=== PATIENT | female | born 1970 | race Caucasian/White ===

== ENCOUNTER → 2016-07-04 | Outpatient (CLI) | payer MEDICAID, BC ==
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
== END | disposition home or self-care (01) ==
LOC: RADMRIMAIN 07:43
PROVIDERS: ATTEND Family Medicine
DX: M47.816 Spondylosis without myelopathy or radiculopathy, lumbar region (principal)
CPT/HCPCS: 72148

== ENCOUNTER → 2016-12-30 | Outpatient (CLI) | payer MEDICAID, BC ==
[2016-12-30 08:26] LABS: Basophils # (A) 0.1 k/uL (0-0.2); Basophils % (A) 1 %; CH 31.3; CHCM 35.5; Eosinophils # (A) 0.4 k/uL (0-0.7); Eosinophils % (A) 5 %; HCT 43.3 % (34.0-46.0); HDW 2.77; HGB 15.6 gm/dL (11.4-16.0); Luc # (Auto) 0.22; Luc % (Auto) 3; Lymphocytes # (A) 2.3 k/uL (1.0-4.8); Lymphocytes % (A) 28 %; MCHC 36.2 g/dL (31.0-37.0); MCV 88.5 fL (80.0-100.0); Monocytes # (A) 0.5 k/uL (0-1.0); Monocytes % (A) 6 %; Neutrophils # (A) 4.7 k/uL (1.3-7.7); Neutrophils % (A) 58 %; RBC 4.89 m/uL (3.80-5.40); RDW 13.2 % (11.5-15.5); WBC 8.2 k/uL (3.8-10.6); WBC (Perox) 7.63
[2016-12-30 08:28] LABS: ALT 30 U/L (9-52); AST 22 U/L (14-36); Alkaline Phosphatase 73 U/L (38-126); Anion Gap 13 mmol/L; Blood Urea Nitrogen 11 mg/dL (7-17); Calcium 9.9 mg/dL (8.4-10.2); Carbon Dioxide 29 mmol/L (22-30); Chloride 97 mmol/L (98-107); Cholesterol 179 mg/dL (<200); Creatine Kinase 35 U/L (30-135); Glucose 101 mg/dL (74-99); HDL Cholesterol 73 mg/dL (40-60); Non-African American GFR(MDRD) >60 (>60 ml/min/1.73 sqM); Potassium 4.6 mmol/L (3.5-5.1); Sodium 139 mmol/L (137-145); Total Bilirubin 0.7 mg/dL (0.2-1.3); Total Protein 7.7 g/dL (6.3-8.2); Triglycerides 106 mg/dL (<150)
== END | disposition home or self-care (01) ==
LOC: LABWHC1 07:10
PROVIDERS: ATTEND Physician Assistant Medical
DX: E55.9 Vitamin D deficiency, unspecified (principal); E78.2 Mixed hyperlipidemia
CPT/HCPCS: 36415; 80053; 80061; 82306; 82550; 84443; 85025

== ENCOUNTER → 2017-01-15 | Outpatient (CLI) | payer MEDICAID, BC ==
--- NOTE | 2017-01-15 09:11 | USB ---
Reason for exam: clinical finding. History: Patient is postmenopausal and history of other cancer. Family history of breast cancer in maternal cousin and breast cancer in paternal grandmother at age 50. Benign US biopsy breast VAD LT of the left breast, February 09, 2016. Took hormonal contraceptives for 10 years beginning at age 16. Physical Findings: Nurse Summary: pain x 1 year with left pressure 6-9 o'clock secondary to biopsy (nurse cw). US Breast LT Left breast ultrasound includes all four quadrants, the retroareolar region and axilla. Finding demonstrates a 6 x 4 x 6mm oval, hypoechoic lesion at 9 o'clock seen with anteriorly adjacent to clip. These results were verbally communicated with the patient and result sheet given to the patient on 01/15/17. ASSESSMENT: Benign, BI-RAD 2 RECOMMENDATION: Return to routine screening mammogram schedule for both breasts. Back on schedule for January 2017.
== END | disposition home or self-care (01) ==
LOC: RADUSWWP 08:12
PROVIDERS: ATTEND Surgery
DX: R92.8 Other abnormal and inconclusive findings on diagnostic imaging of breast (principal)

== ENCOUNTER → 2017-02-12 | Outpatient (CLI) | payer MEDICAID, BC ==
--- NOTE | 2017-02-12 15:34 | XR ---
EXAMINATION TYPE: XR Hip Complete LT DATE OF EXAM: 02/12/2017 COMPARISON: NONE HISTORY: 46-year-old female with left hip pain and bursitis, limited range of motion since fall 6 mon ths ago. TECHNIQUE: AP and frog-leg lateral views. FINDINGS: Hip joint spaces relatively maintained. Some enthesopathic change noted at the gluteal insertion onto the greater trochanter. No acute fracture, subluxation, or dislocation. Osteitis pubis is noted. IMPRESSION: No acute osseous abnormality seen.
== END | disposition home or self-care (01) ==
LOC: RADXRYALE 14:42
PROVIDERS: ATTEND Physician Assistant Medical
DX: M70.62 Trochanteric bursitis, left hip (principal)
CPT/HCPCS: 73502

== ENCOUNTER → 2017-08-27 | Outpatient (CLI) | payer MEDICAID, BC ==
--- NOTE | 2017-08-27 13:33 | MR ---
PRE AND POSTCONTRAST ENHANCED MRI OF THE BRAIN: CLINICAL HISTORY: ataxia, vertigo CONTRAST: 6ml gadavist COMPARISON: 04/26/2015 Multiplanar and multispin-echo imaging of the brain was performed both before and after the administr ation of contrast. The ventricles, basal cisterns and sulci overlying the cerebral convexities are within normal limits. There is no evidence for midline shift or mass effect. Acute intracranial hemorrhage or extra-axial collection is not evident. Stable focus of increased signal on the inversion recovery data set right parietal lobe. The findings nonspecific and can be seen in patients with chronic migraine headaches, vasculitis, sequela of Lyme 's disease and less likely demyelination and a few. Prominent perivascular space of Virchow Freddie not ed. Following contrast administration, there is no evidence for pathologic enhancement or enhancing mass. The paranasal sinuses and mastoid air cells are well-aerated. IMPRESSION: Stable focus of increased signal on the inversion recovery data set right parietal lobe. The findings nonspecific and can be seen in patients with chronic migraine headaches, vasculitis, sequela of Lyme 's disease and less likely demyelination and a few.
== END | disposition home or self-care (01) ==
LOC: RADMRIMAIN 08:30
PROVIDERS: ATTEND Otolaryngology
DX: R90.89 Other abnormal findings on diagnostic imaging of central nervous system (principal); R42 Dizziness and giddiness
CPT/HCPCS: 82565; 70553; A9581

== ENCOUNTER → 2018-05-15 | Outpatient (CLI) | payer MEDICAID, BC | LOC: LABWHC1 10:35 | PROVIDERS: ATTEND Obstetrics & Gynecology | DX: N95.1 Menopausal and female climacteric states (principal) | CPT/HCPCS: 36415; 82670 ==

== ENCOUNTER → 2018-08-05 | Outpatient (CLI) | payer MEDICAID, BC ==
--- NOTE | 2018-08-05 14:46 | XR ---
EXAMINATION TYPE: XR cervical spine comp DATE OF EXAM: 08/05/2018 CLINICAL HISTORY: pain COMPARISON: NONE TECHNIQUE: Frontal, lateral, oblique, swimmers, and open mouth view of the cervical spine are obtaine d. FINDINGS: The cervical spine is visualized in its entirety from C1 thru the top of T1 level. It is s atisfactory in alignment without evidence of acute fracture or dislocation. The pre-vertebral soft t issue appears within normal limits. Mild degenerative narrowing and spur formation at C4-5. The C1-C2 articulation is unremarkable on the open mouth view. The oblique images are within normal limits. IMPRESSION: No acute fracture or dislocation is seen in the cervical spine.ICD 10 NO FRACTURE, INITI AL EVALUATION
== END | disposition home or self-care (01) ==
LOC: RADXRYALE 13:49
PROVIDERS: ATTEND Physician Assistant Medical
DX: M54.2 Cervicalgia (principal)
CPT/HCPCS: 72050

== ENCOUNTER 2018-09-25 11:33 | Emergency (ER) | payer MEDICAID, BC ==
[2018-09-25 11:38] VITALS: TEMP 98.1
[2018-09-25] MEDS ORDERED: HYDROcodone/APAP 5-325MG 1 EACH TAB PO STA (12:25)
--- NOTE | 2018-09-25 13:11 | CT ---
EXAMINATION TYPE: CT pelvis wo con, CT sacrum wo con DATE OF EXAM: 09/25/2018 COMPARISON: None. HISTORY: Fall; Possible hip fracture (accession [id number]), Fall; possible hip fracture (accession [id number]) fall injury with pelvic and sacral pain. CT DLP: 689.5 (accession [id number]), 361.9 (accession [id number]) mGycm Automated exposure control for dose reduction was used. FINDINGS: Sacrum appears intact. Sacral alar maintained bilaterally. Sacroiliac joints are symmetric and felt w ithin normal limits. Pelvis shows sclerosis involving right pubic symphysis. Etiology uncertain. No acute fracture or disl ocation is seen. Hip joints are symmetric with perhaps mild axial joint space loss. Urinary bladder is felt within normal limits. Uterus is surgically absent or atrophic. Tiny fat-conta ining umbilical hernia is seen. No suspicious bowel dilatation is present. There is low-lying cecum i nto the pelvis noted. Right-sided pelvic phlebolith are present. Muscle bulk bilateral thighs is symmetric and felt within normal limits. No suspicious fluid collecti on or hematoma is identified. IMPRESSION: NO ACUTE FRACTURE OR DISLOCATION IN PELVIS OR SACRUM.
--- NOTE | 2018-09-25 13:13 | CT ---
EXAMINATION TYPE: CT hip RT wo con DATE OF EXAM: 09/25/2018 COMPARISON: Right hip radiographs of the same date HISTORY: Fall; Possible hip fracture. Right hip pain. CT DLP: 1024.7 mGycm Automated exposure control for dose reduction was used. FINDINGS: No acute fracture or dislocation is seen of the right hip. Very mild inferior medial joint space narr owing is seen. There is normal muscle volume of the surrounding hip girdle musculature. Slight fat st randing at the posterior aspect of the gluteal soft tissues may relate to osseous contusion. Right ov chavez approximately 2.3 cm cystic lesion is seen. Asymmetric sclerosis of the right pubic bone althou gh is nonspecific is likely degenerative. Sacroiliac joint spaces maintained and no widening is seen. IMPRESSION: 1. NO ACUTE FRACTURE OF THE RIGHT HIP. 2. ASYMMETRIC RIGHT PUBIC BONE SCLEROSIS LIKELY RELATES TO OSTEITIS PUBIS. 3. SUBTLE PROBABLE RIGHT POSTERIOR GLUTEAL TISSUE CONTUSION.
[2018-09-25 13:25] VITALS: BP 133/86; PULSE 69; RESP 16
--- NOTE | 2018-09-25 13:26 | ED ---
Lower Extremity Injury HPI - General Chief Complaint: Extremity Injury, Lower Stated Complaint: fall/poss hip fracture Time Seen by Provider: 09/25/18 11:34 Source: patient, RN notes reviewed, old records reviewed Mode of arrival: wheelchair Limitations: no limitations - History of Present Illness Initial Comments: This is a 47-year-old female the ER. Patient resents today for a fall. Patient recently had x-rays done of the fall after fall and Concern for possible hip fracture. Patient continuing to complain of hip pain. Left hip pain. No other injury or trauma noted. MD Complaint: hip injury (Left) -: days(s) Injury: Hip: Left, Pelvis: Left Type of Injury: blunt Place: home Severity: moderate Severity scale (1-10): 5 Improves With: nothing Worsens With: weight bearing Context: fall Associated Symptoms: able to partially bear weight, ambulatory Treatments Prior to Arrival: bandage - Related Data Home Medications Medication Instructions Recorded Confirmed Vitamin E (Dl,Tocopheryl Acet) 400 unit PO DAILY 11/20/13 09/25/18 [Vitamin E] Cholecalciferol [Vitamin D3] 5,000 unit PO DAILY 09/25/18 09/25/18 Diazepam [Valium] 5 mg PO BID 09/25/18 09/25/18 Gabapentin [Neurontin] 300 mg PO AC-BID 09/25/18 09/25/18 Gabapentin [Neurontin] 600 mg PO HS 09/25/18 09/25/18 Hydrocodone/Acetaminophen [[place] 1 tab PO Q4H 09/25/18 09/25/18 10-325] Meclizine [Antivert] 25 mg PO QID 09/25/18 09/25/18 Ondansetron HCl [Zofran] 8 mg PO TID PRN 09/25/18 09/25/18 Simvastatin [Zocor] 20 mg PO HS 09/25/18 09/25/18 Allergies Allergy/AdvReac Type Severity Reaction Status Date / Time Iodinated Contrast- Oral and Allergy Severe Anaphylaxis Verified 09/25/18 12:03 IV Dye [Iodinated Contrast Media - IV Dye] MRI CONTRAST Allergy Severe Anaphylaxis Uncoded 09/25/18 12:03 Review of Systems ROS Statement: Those systems with pertinent positive or pertinent negative responses have been documented in the HPI. ROS Other: All systems not noted in ROS Statement are negative. Past Medical History Past Medical History: COPD Additional Past Medical History / Comment(s): ulcerative colitis History of Any Multi-Drug Resistant Organisms: None Reported Past Surgical History: Hysterectomy, Orthopedic Surgery Additional Past Surgical History / Comment(s): RT KNEE ACL. KIDNEY SURGERY CHILD. MULTIPLE D&C Past Psychological History: No Psychological Hx Reported Smoking Status: Former smoker Past Alcohol Use History: Rare Past Drug Use History: None Reported General Exam Limitations: no limitations General appearance: alert, in no apparent distress Head exam: Present: atraumatic, normocephalic, normal inspection Eye exam: Present: normal appearance, PERRL, EOMI. Absent: scleral icterus, conjunctival injection, periorbital swelling ENT exam: Present: normal exam, mucous membranes moist Neck exam: Present: normal inspection. Absent: tenderness, meningismus, lymphad enopathy Respiratory exam: Present: normal lung sounds bilaterally. Absent: respiratory distress, wheezes, rales, rhonchi, stridor Cardiovascular Exam: Present: regular rate, normal rhythm, normal heart sounds. Absent: systolic murmur, diastolic murmur, rubs, gallop, clicks GI/Abdominal exam: Present: soft, normal bowel sounds. Absent: distended, tenderness, guarding, rebound, rigid Extremities exam: Present: normal inspection, full ROM, normal capillary refill. Absent: tenderness, pedal edema, joint swelling, calf tenderness Back exam: Present: normal inspection Neurological exam: Present: alert, oriented X3, CN II-XII intact Psychiatric exam: Present: normal affect, normal mood Skin exam: Present: warm, dry, intact, normal color. Absent: rash Course Vital Signs 09/25/18 09/25/18 11:35 13:23 Temperature 98.1 F Pulse Rate 85 69 Respiratory 18 16 Rate Blood Pressure 136/91 133/86 O2 Sat by Pulse 99 97 Oximetry - Reevaluation(s) Reevaluation #1: Neck record and prior x-rays are reviewed Patient informed of negative CT scans Medical Decision Making - Medical Decision Making Plan I female the ER for evaluation, patient does have fall, contusion is did do computed tomography scan of her pelvis which is negative for traumatic injury Disposition Clinical Impression: Fall, Contusion, hip Disposition: HOME SELF-CARE Condition: Good Instructions (If sedation given, give patient instructions): Fall Prevention for Older Adults (ED), Hip Pain (ED) Is patient prescribed a controlled substance at d/c from ED?: No Referrals: Josafat Mendoza DO [Primary Care Provider] - 1-2 days
[2018-09-25] MEDS ORDERED: ACET/COD 300 MG/30 MG STARTER PACK 6 TAB BTL PO STA (14:02)
== END 2018-09-25 14:17 | disposition home or self-care (01) ==
LOC: EC 11:33
DX: S70.02XA Contusion of left hip, initial encounter (principal); Z87.891 Personal history of nicotine dependence; Z79.891 Long term (current) use of opiate analgesic; Z79.899 Other long term (current) drug therapy; Z91.041 Radiographic dye allergy status; W10.9XXA Fall (on) (from) unspecified stairs and steps, initial encounter; Y92.009 Unspecified place in unspecified non-institutional (private) residence as the place of occurrence of the external cause
CPT/HCPCS: 72192; 99284

== ENCOUNTER → 2018-09-25 | Outpatient (CLI) | payer MEDICAID, BC ==
--- NOTE | 2018-09-25 10:33 | XR ---
EXAMINATION TYPE: XR Hip Complete RT DATE OF EXAM: 09/25/2018 CLINICAL HISTORY: Right hip pain after fall one day ago TECHNIQUE: AP and frogleg views of the right hip are obtained. COMPARISON: None. FINDINGS: There is a very subtle questionable lucency of the right lateral femoral head neck junction on the frog leg view and cortical discontinuity on the AP view. Subtle subcapital right hip fracture is possible and could be further evaluated with CT. No additional acute fracture is identified of th e right hip. Few phleboliths are seen within the pelvis. No suspicious osseous lesion. IMPRESSION: Questionable subtle nondisplaced subcapital right hip fracture for which CT is recommend ed for further evaluation. Findings and recommendations were communicated to Sherrie at the [facility] [place] office by Dr. Danielson at 10:30am.
--- NOTE | 2018-09-25 10:34 | XR ---
EXAMINATION TYPE: XR lumbar spine 2 or 3V DATE OF EXAM: 09/25/2018 CLINICAL HISTORY: Fall and back pain TECHNIQUE: Frontal and lateral images of the lumbar spine are obtained. COMPARISON: 08/30/2011 FINDINGS: There are 5 lumbar type vertebral bodies identified. There are hypoplastic 12th ribs. The lumbar spine shows satisfactory alignment without evidence of acute fracture or dislocation. Vertebra l body heights and disk space heights are within normal limits. Facet arthropathy is seen from L3 thr ough S1 with small anterior osteophytes throughout the lower lumbar spine. Very mild levoscoliosis m ay be positional in nature. The overlying soft tissue appears unremarkable. IMPRESSION: No acute fracture or malalignment is seen in the lumbar spine.
== END | disposition home or self-care (01) ==
LOC: RADXRMAIN 09:28
PROVIDERS: ATTEND Physician Assistant Medical
DX: M25.551 Pain in right hip (principal); M51.16 Intervertebral disc disorders with radiculopathy, lumbar region; R29.6 Repeated falls
CPT/HCPCS: 72100; 73502

== ENCOUNTER → 2018-11-25 | Outpatient (CLI) | payer MEDICAID, BC ==
[2018-11-25 12:52] LABS: Anion Gap 8 mmol/L; Blood Urea Nitrogen 10 mg/dL (7-17); Carbon Dioxide 33 mmol/L (22-30); Chloride 98 mmol/L (98-107); Glucose 103 mg/dL (74-99); Potassium 3.3 mmol/L (3.5-5.1); Sodium 139 mmol/L (137-145)
[2018-11-25 13:04] LABS: Basophils # (A) 0.1 k/uL (0-0.2); Basophils % (A) 1 %; Eosinophils # (A) 0.3 k/uL (0-0.7); Eosinophils % (A) 5 %; HCT 42.3 % (34.0-46.0); HGB 14.3 gm/dL (11.4-16.0); Lymphocytes # (A) 1.9 k/uL (1.0-4.8); Lymphocytes % (A) 27 %; MCH 29.9 pg (25.0-35.0); MCHC 33.9 g/dL (31.0-37.0); MCV 88.3 fL (80.0-100.0); Mean Platelet Volume 7.2; Monocytes # (A) 0.4 k/uL (0-1.0); Monocytes % (A) 5 %; Neutrophils # (A) 4.4 k/uL (1.3-7.7); Neutrophils % (A) 61 %; Platelet Count 372 k/uL (150-450); RBC 4.79 m/uL (3.80-5.40); RDW 13.3 % (11.5-15.5); WBC 7.2 k/uL (3.8-10.6)
== END | disposition home or self-care (01) ==
LOC: LABPAT 12:16
PROVIDERS: ATTEND Obstetrics & Gynecology
DX: Z01.812 Encounter for preprocedural laboratory examination (principal); N81.6 Rectocele
CPT/HCPCS: 80051; 82565; 82947; 84520; 85025; 87086

== ENCOUNTER 2018-11-26 05:34 | Observation (INO) | payer MEDICAID, BC ==
[~2018-11-26 05:34] MED LIST: ceFAZolin IN SWFI 2 GM/20 ML SYRINGE IVP ONE
[2018-11-26] MEDS ORDERED: ONDANSETRON 4 MG/2 ML VIAL IVP ONE (05:45)
[2018-11-26] MEDS ORDERED: DEXAMETHASONE SOD PHOSPHATE 10 MG/ML 1 ML VIAL IV ONE (05:45)
[2018-11-26] MEDS ORDERED: MIDAZOLAM 2 MG/2 ML VIAL IV PRN (05:45)
[2018-11-26] MEDS ORDERED: HYDROmorphone 0.5 MG/0.5 ML SYRINGE IVP PRN (05:45)
[2018-11-26] MEDS ORDERED: SCOPOLAMINE 1.5MG/72HR PATCH TRANSDERM ONE (05:45)
[2018-11-26] MEDS ORDERED: LIDOCAINE 1% 20 ML VIAL (10MG/ML) FOR IV START INTRADERMA PRN (05:45)
[2018-11-26] MEDS ORDERED: LACTATED RINGERS 1,000 ML IV ONE ×2 (06:12→08:08)
[2018-11-26] MEDS ORDERED: MORPHINE SULFATE (PF) 0.3 MG/0.3 ML SYR ONE (07:20)
[2018-11-26] MEDS ORDERED: PROPOFOL 10 MG/ML 20 ML VIAL IV ONE (07:20)
[2018-11-26] MEDS ORDERED: fentaNYL (PF) 50 MCG/ML 2 ML AMP ONE (07:20)
[2018-11-26] MEDS ORDERED: diphenhydrAMINE 50 MG/ML 1 ML VIAL ONE (07:20)
[2018-11-26] MEDS ORDERED: MIDAZOLAM 2 MG/2 ML VIAL ONE (07:20)
[2018-11-26] MEDS ORDERED: VASOPRESSIN 20 UNIT/ML 1 ML VIAL IM ONE (07:52)
[2018-11-26] MEDS ORDERED: BACITRACIN 500 UNIT/GM OINT 28.4 GM TUBE TOPICAL ONE ×2 (07:58→08:04)
--- NOTE | 2018-11-26 09:18 | P.OP ---
Date of Procedure: 11/26/18 Preoperative Diagnosis: Third-degree rectocele Postoperative Diagnosis: Same Procedure(s) Performed: Posterior colporrhaphy Anesthesia: spinal Surgeon: Rose Morel Packing And Wrapping Supervisor #1: Maddie Gonzalez Estimated Blood Loss (ml): 25 IV fluids (ml): 1,000 Urine output (ml): 200 Pathology: none sent Condition: stable Disposition: PACU Indications for Procedure: Symptomatic third-degree rectocele Operative Findings: Large third-degree rectocele, first-degree cystocele, second-degree vaginal cuff prolapse Description of Procedure: After the patient and her were met in the preoperative holding area and all questions were answered, she was taken to the operating room where spinal anesthetic was administered without incident. She was in positioned, prepped and draped in the dorsal high lithotomy position. The bladder was drained for approximately 200 mL of clear urine. Exam under anesthetic was undertaken. A large third-degree rectocele was noted with gaping introitus. The remnants of the hymeneal ring were delineated with Allis clamps. The perineum and posterior vaginal mucosa were infused with dilute vasopressin solution to the apex of the defect. A triangular incision was made at the perineum. Metzenbaum scissors were utilized to undermine the posterior vaginal mucosa in the midline. This was incised on to the apex of the defect. Edges of the vaginal mucosa were delineated with Allis clamps. The underlying rectovaginal tissue was then bluntly and sharply dissected away from the vaginal mucosa. The edges of the defect bilaterally were noted. 2-0 Vicryl suture was then utilized to reapproximate the rectovaginal fascia in the midline in an interrupted fashion. Multiple sutures were utilized to effectively reduced the defect. The excess vaginal mucosa was then trimmed. The vaginal mucosa was then closed in a running locked fashion over top of the rectocele repair. A crown stitch was placed in the perineal body to reapproximate. The skin was then closed over the perineum. The repair was inspected and noted to be hemostatic. The vagina was then packed with bacitracin-soaked 1 inch iodoform gauze. Rectal exam was performed and no encroachment of suture material was palpable. Davalos catheter remained in place. Counts reported to me as correct by the operating room staff. The patient was awoken from anesthetic and transported to recovery area in stable condition.
[2018-11-26] MEDS ORDERED: SIMETHICONE 80 MG CHEWABLE PO PRN (10:21)
[2018-11-26] MEDS ORDERED: ONDANSETRON 4 MG/2 ML VIAL IVP PRN (10:21)
[2018-11-26] MEDS ORDERED: IBUPROFEN 600 MG TAB PO PRN (10:21)
[2018-11-26] MEDS ORDERED: ZOLPIDEM 5 MG TAB PO PRN (10:21)
[2018-11-26] MEDS ORDERED: Acetaminophen-Codeine 300-30mg TAB PO PRN (10:21)
[2018-11-26] MEDS ORDERED: METOCLOPRAMIDE 5 MG/ML 2 ML VIAL IVP PRN (10:21)
[2018-11-26 11:29] VITALS: BMI 35.8
[2018-11-26] MEDS: LACTATED RINGERS 1,000 ML IV SCH (11:36)
[2018-11-26] MEDS: KETOROLAC 30 MG/ML 1 ML VIAL IVP PRN ×2 (12:28→17:35)
[2018-11-26] MEDS: diphenhydrAMINE 50 MG/ML 1 ML VIAL IVP PRN ×2 (12:32→19:49)
[2018-11-26] MEDS: MECLIZINE 25 MG TAB PO SCH ×3 (14:29→21:25)
[2018-11-26] MEDS: GABAPENTIN 300 MG CAP PO SCH (17:34)
[2018-11-26] MEDS ORDERED: GABAPENTIN 300 MG CAP PO SCH (21:00)
[2018-11-26] MEDS ORDERED: PROGESTERONE PO SCH (21:00)
[2018-11-26] MEDS ORDERED: ATORVASTATIN 10 MG TAB PO SCH (21:00)
[2018-11-26] MEDS: DIAZEPAM 5 MG TAB PO SCH (21:24)
[2018-11-26] MEDS: SENNOSIDES-DOCUSATE SODIUM 1 EACH TAB PO SCH (21:25)
[2018-11-27] MEDS: KETOROLAC 30 MG/ML 1 ML VIAL IVP PRN ×2 (01:04→06:21)
[2018-11-27] MEDS: LACTATED RINGERS 1,000 ML IV SCH (06:22)
[2018-11-27] MEDS: GABAPENTIN 300 MG CAP PO SCH (07:45)
[2018-11-27] MEDS: DIAZEPAM 5 MG TAB PO SCH (07:46)
[2018-11-27] MEDS: SENNOSIDES-DOCUSATE SODIUM 1 EACH TAB PO SCH (07:46)
[2018-11-27] MEDS: MECLIZINE 25 MG TAB PO SCH (07:47)
[2018-11-27] MEDS: diphenhydrAMINE 50 MG/ML 1 ML VIAL IVP PRN (07:54)
[2018-11-27 08:19] VITALS: BP 96/60; PULSE 96; RESP 16; TEMP 98.5
--- NOTE | 2018-11-27 08:24 | P.DS ---
Providers Date of admission: 11/26/18 20:36 Expected date of discharge: 11/27/18 Attending physician: Rose Morel Primary care physician: Josafat Mendoza - Discharge Diagnosis(es) (1) Rectocele Current Visit: Yes Status: Acute Hospital Course: This is a 48-year-old woman with a large symptomatic third-degree rectocele who was admitted on 11/25/2018 for surgical repair. She went to the operating room after admission and underwent an uncomplicated posterior colporrhaphy done under spinal anesthetic. Findings at the time of surgery were significant for a large third-degree rectocele, gaping introitus, first-degree cystocele and first- degree vaginal cuff prolapse. Procedure was uncomplicated with an EBL of 25 mL's. Her postoperative course was uncomplicated. By the evening of postoperative day #0 she was tolerating a general diet and was ambulating without difficulty. By the morning of postoperative day #1 her Davalos catheter was removed and her vaginal packing was removed. There is no active vaginal bleeding noted. Her pain was tolerable on oral pain medications. Her home medications were restarted. She was discharged home in the morning of postoperative day #1 with routine instructions for care and follow-up. Procedures: Posterior colporrhaphy Patient Condition at Discharge: Good Plan - Discharge Summary Discharge Rx Participant: No New Discharge Prescriptions: No Action Vitamin E (Dl,Tocopheryl Acet) [Vitamin E] 400 unit PO DAILY Cholecalciferol [Vitamin D3] 5,000 unit PO DAILY Gabapentin [Neurontin] 600 mg PO HS Gabapentin [Neurontin] 300 mg PO AC-BID Simvastatin [Zocor] 20 mg PO HS Ondansetron HCl [Zofran] 8 mg PO TID PRN PRN Reason: Nausea Meclizine [Antivert] 25 mg PO QID Hydrocodone/Acetaminophen [Ellis 10-325] 1 tab PO Q4H Diazepam [Valium] 5 mg PO BID Loratadine-Pseudoeph 10-240 mg [Claritin-D 24 Hr] 1 tab PO DAILY Mesalamine [Canasa] 1,000 mg RECTAL HS Progesterone, Micronized [Progesterone] 400 mg PO HS Discharge Medication List Vitamin E (Dl,Tocopheryl Acet) [Vitamin E] 400 unit PO DAILY 11/20/13 [History] Cholecalciferol [Vitamin D3] 5,000 unit PO DAILY 09/25/18 [History] Diazepam [Valium] 5 mg PO BID 09/25/18 [History] Gabapentin [Neurontin] 300 mg PO AC-BID 09/25/18 [History] Gabapentin [Neurontin] 600 mg PO HS 09/25/18 [History] Hydrocodone/Acetaminophen [Ellis 10-325] 1 tab PO Q4H 09/25/18 [History] Meclizine [Antivert] 25 mg PO QID 09/25/18 [History] Ondansetron HCl [Zofran] 8 mg PO TID PRN 09/25/18 [History] Simvastatin [Zocor] 20 mg PO HS 09/25/18 [History] Loratadine-Pseudoeph 10-240 mg [Claritin-D 24 Hr] 1 tab PO DAILY 11/25/18 [History] Mesalamine [Canasa] 1,000 mg RECTAL HS 11/25/18 [History] Progesterone, Micronized [Progesterone] 400 mg PO HS 11/26/18 [History] Follow up Appointment(s)/Referral(s): Rose Morel MD [STAFF PHYSICIAN] - 2 Weeks Patient Instructions/Handouts: *Surgery [facility] - (Anesthesia) Discharge Instructions Outpatient Surgery, *Surgery [facility] - Scopalamine Patch Instructions Activity/Diet/Wound Care/Special Instructions: Follow-up in the office in 2 weeks postoperatively or sooner if any Concerning signs or symptoms which include: Heavy vaginal bleeding, foul vaginal discharge, inability to void, severe abdominal or pelvic pain, fever greater than 100.5, redness or swelling of the lower extremities. May use home nor co-as needed for pain. No heavy lifting greater than 10 pounds until seen postoperatively. Nothing in the vagina, specifically no intercourse for 6 weeks. No tub baths until seen postoperatively. Use [id number] Colace or Senokot twice daily as needed to avoid constipation. Discharge Disposition: HOME SELF-CARE
[2018-11-27 08:27] LABS: Basophils % (A) 0 %; Eosinophils # (A) 0.1 k/uL (0-0.7); Eosinophils % (A) 1 %; HCT 35.8 % (34.0-46.0); HGB 12.3 gm/dL (11.4-16.0); Lymphocytes # (A) 1.3 k/uL (1.0-4.8); Lymphocytes % (A) 10 %; MCH 30.6 pg (25.0-35.0); MCHC 34.4 g/dL (31.0-37.0); MCV 88.9 fL (80.0-100.0); Mean Platelet Volume 7.1; Monocytes # (A) 0.5 k/uL (0-1.0); Monocytes % (A) 4 %; Neutrophils # (A) 10.4 k/uL (1.3-7.7); Neutrophils % (A) 83 %; Platelet Count 321 k/uL (150-450); RBC 4.02 m/uL (3.80-5.40); RDW 13.2 % (11.5-15.5); WBC 12.5 k/uL (3.8-10.6)
[2018-11-27] MEDS ORDERED: VITAMIN E (DL,TOCOPHERYL ACET) 400 UNIT CAP PO SCH (09:00)
[2018-11-27] MEDS ORDERED: LORATADINE-PSEUDOEPH 5-120 MG 1 EACH TAB.ER.12H PO SCH (09:00)
[2018-11-27] MEDS ORDERED: CHOLECALCIFEROL 1,000 UNIT TAB PO SCH (09:00)
[2018-11-27] MEDS ORDERED: ACETAMINOPHEN TAB 325 MG TAB PO PRN (09:13)
== END 2018-11-27 11:38 | disposition home or self-care (01) ==
LOC: OR 05:34 → 6PED 09:29 → 4SSUR 09:55 → OR 20:36 → 4SSUR 21:15 → UNDOADMIN 21:15
PROVIDERS: ADMIT Obstetrics & Gynecology; ATTEND Obstetrics & Gynecology
DX: N81.6 Rectocele (principal); N81.10 Cystocele, unspecified; K51.90 Ulcerative colitis, unspecified, without complications; E78.5 Hyperlipidemia, unspecified; G62.9 Polyneuropathy, unspecified; M54.16 Radiculopathy, lumbar region; H93.3X9 Disorders of unspecified acoustic nerve; N95.1 Menopausal and female climacteric states; Z87.891 Personal history of nicotine dependence; Z87.442 Personal history of urinary calculi; Z91.040 Latex allergy status; Z88.8 Allergy status to other drugs, medicaments and biological substances; Z79.890 Hormone replacement therapy; Z79.899 Other long term (current) drug therapy; Z79.891 Long term (current) use of opiate analgesic; Z90.710 Acquired absence of both cervix and uterus; Z91.041 Radiographic dye allergy status; Z91.048 Other nonmedicinal substance allergy status; Z80.3 Family history of malignant neoplasm of breast; Z80.41 Family history of malignant neoplasm of ovary; Z82.61 Family history of arthritis; Z83.49 Family history of other endocrine, nutritional and metabolic diseases; Z82.49 Family history of ischemic heart disease and other diseases of the circulatory system; Z82.69 Family history of other diseases of the musculoskeletal system and connective tissue; Z80.0 Family history of malignant neoplasm of digestive organs
CPT/HCPCS: 86900; 86901; 84132; 85025; 86850; 57260; G0378 ×2; J2250; J1200 ×2; J1100; J2765; J2405 ×2; J2274; J3010; J1885 ×2; J2704; J0690

== ENCOUNTER → 2019-03-04 | Outpatient (CLI) | payer MEDICAID, BC ==
--- NOTE | 2019-03-04 15:54 | XR ---
EXAMINATION TYPE: XR ribs RT w pa chest xray DATE OF EXAM: 03/04/2019 CLINICAL HISTORY: Right mid and lateral rib pain after fall yesterday TECHNIQUE: Single frontal view of the chest is obtained. COMPARISON: Rib radiographs dated 04/27/2015 FINDINGS: Bibasilar strand-like opacities are seen at the lung bases with low lung volumes. Opacity l ikely represents subsegmental atelectasis. Cardiomediastinal silhouette is mildly enlarged. Nondispla jojo fractures of ribs 5 and 6 at the lateral margins are seen on the right. No apparent callus format ion is seen. Remaining ribs appear intact and unremarkable. Mild degenerative changes of the thoracic spine. IMPRESSION: Nondisplaced fractures of the lateral margins rib 5 and 6 on the right appear acute. Lina elate with point tenderness. Minimal strand-like bibasilar opacities are favored to represent atelect asis with low lung volumes.
== END | disposition home or self-care (01) ==
LOC: RADXRYALE 15:27
PROVIDERS: ATTEND Physician Assistant Medical
DX: R91.8 Other nonspecific abnormal finding of lung field (principal); R07.9 Chest pain, unspecified

== ENCOUNTER → 2019-03-12 | Outpatient (CLI) | payer MEDICAID, BC ==
--- NOTE | 2019-03-12 15:08 | XR ---
EXAMINATION TYPE: XR ribs RT w pa chest xray DATE OF EXAM: 03/12/2019 CLINICAL HISTORY: Extreme right lateral rib pain TECHNIQUE: Single frontal view of the chest is obtained. Frontal and oblique views of the right ribs were also obtained. COMPARISON: Right rib x-rays and chest x-ray dated 03/04/2019 FINDINGS: There are known nondisplaced fractures of the lateral margins of ribs 5 and 6 that were acu te on the exam of 03/04/2019 and now are subacute. Subacute healing fracture is now evident of rib 7 an d its posterior lateral margin. There is some interval callus formation. No acute displaced fracture is seen of the right ribs. Minimal patchy bibasilar subsegmental dependent atelectasis. Overall low l alix volumes. Right hemidiaphragm elevation is seen. Cardiomediastinal silhouette is stable. IMPRESSION: Some interval healing of the known nondisplaced lateral right rib 5 and 6 fractures that are subacute and visualization of a subacute lateral right rib 7 fracture.
== END | disposition home or self-care (01) ==
LOC: RADXRYALE 14:03
PROVIDERS: ATTEND Physician Assistant
DX: S22.41XA Multiple fractures of ribs, right side, initial encounter for closed fracture (principal)

== ENCOUNTER → 2019-04-06 | Outpatient (CLI) | payer MEDICAID, BC ==
--- NOTE | 2019-04-06 15:07 | XR ---
Sternum HISTORY: Sternal pain 2 views of the sternum Alignment is maintained. No depressed sternal fracture is evident. Bone mineralization thought to be normal. IMPRESSION: Bone scan may be of increased sensitivity to assess for occult injury or alternatively co nsider chest CT.
== END | disposition home or self-care (01) ==
LOC: RADXRYALE 08:47
PROVIDERS: ATTEND Family Medicine
DX: G89.4 Chronic pain syndrome (principal); S22.41XS Multiple fractures of ribs, right side, sequela; S23.421D Sprain of chondrosternal joint, subsequent encounter; Z79.891 Long term (current) use of opiate analgesic
CPT/HCPCS: 71120

== ENCOUNTER → 2019-04-27 | Outpatient (CLI) | payer MEDICAID, BC ==
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
== END | disposition home or self-care (01) ==
LOC: RADXRYALE 08:44
PROVIDERS: ATTEND Family Medicine
DX: S22.41XS Multiple fractures of ribs, right side, sequela (principal); S23.421D Sprain of chondrosternal joint, subsequent encounter; G89.4 Chronic pain syndrome; Z79.891 Long term (current) use of opiate analgesic
CPT/HCPCS: 71120

== ENCOUNTER → 2019-04-30 | Outpatient (CLI) | payer MEDICAID, BC ==
--- NOTE | 2019-04-30 14:21 | CT ---
EXAMINATION TYPE: CT chest wo con DATE OF EXAM: 04/30/2019 COMPARISON: 11/20/2013 HISTORY: Multiple rib fractures CT DLP: 410.3 mGycm, Automated exposure control for dose reduction was used. CONTRAST: Performed injected with 0 mL of Isovue 300. TECHNIQUE: Axial images were obtained at 5 mm thick sections. Reconstructed images are reviewed on [employer] computer in the coronal plane. FINDINGS: There is some minimal prominence of the right lobe thyroid. Thyroid lobe otherwise appears unremarkable. No suspicious lung nodules or focal infiltrates are present. No enlarged mediastinal or hilar adenopathy is evident. The ascending aorta diameter at the level o f the main pulmonary artery is 3.6 cm. The main pulmonary artery diameter at the bifurcation is 2.3 cm. No displaced rib fractures are evident. No pneumothorax is evident. Costochondral cartilage calcifica tion is present. Costochondral cartilage and osseous ribs appear to approximate normally. Costal ster nal junctions appear normal. Terminal appears intact. Limited CT sections are obtained through the upper abdomen. Abdomen is essentially unremarkable. IMPRESSIONS: 1. No displaced rib fractures evident. No costochondral fractures or subluxation evident.
== END | disposition home or self-care (01) ==
LOC: RADCTMAIN 07:51
PROVIDERS: ATTEND Family Medicine
DX: S23.421D Sprain of chondrosternal joint, subsequent encounter (principal); S22.41XS Multiple fractures of ribs, right side, sequela; G89.4 Chronic pain syndrome; M51.36 Other intervertebral disc degeneration, lumbar region; Z79.891 Long term (current) use of opiate analgesic
CPT/HCPCS: 71250

== ENCOUNTER → 2019-05-14 | Outpatient (CLI) | payer MEDICAID, BC ==
--- NOTE | 2019-05-14 14:51 | NM ---
EXAMINATION TYPE: NM bone scan whole body DATE OF EXAM: 05/14/2019 COMPARISON: Chest CT dated 04/30/2019 HISTORY: History of multiple rib fractures. Fall on March 04, 2019. Delayed whole-body scanning was performed following the injection of 24.7 mCi Tc 99m MDP. Images acq uired 3 hours post injection. FINDINGS: No focal radiotracer cannulation is seen within any of the ribs. Likely physiologic uptake is seen ne ar the costochondral junctions throughout both ribs. This is most focal on the left first rib. Mild s ymmetric uptake of the acromioclavicular joints, glenohumeral joints, sternoclavicular joints, sacroi liac joints, hips, knees, and ankles as well as mid feet are typically a degenerative basis. Physiolo gic uptake and excretion from the kidneys into the urinary bladder is seen. IMPRESSION: 1. Mild diffuse uptake at the costochondral junctions that can be physiologic or related to costochon dritis. This is most focal at the left first rib. No suspicious uptake to suggest acute rib fracture. 2. Degenerative changes of the axial and appendicular skeleton.
== END | disposition home or self-care (01) ==
LOC: RADNMMAIN 10:04
PROVIDERS: ATTEND Family Medicine
DX: M19.012 Primary osteoarthritis, left shoulder (principal); M19.011 Primary osteoarthritis, right shoulder; M17.0 Bilateral primary osteoarthritis of knee; M16.0 Bilateral primary osteoarthritis of hip; M19.072 Primary osteoarthritis, left ankle and foot; M19.071 Primary osteoarthritis, right ankle and foot; M53.3 Sacrococcygeal disorders, not elsewhere classified
CPT/HCPCS: 78306; A9503

== ENCOUNTER → 2019-06-03 | Outpatient (CLI) | payer MEDICAID, BC ==
--- NOTE | 2019-06-04 10:10 | P.PAINCN ---
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 Mendoza with a chief complaint of chronic pain in the right side of her sternum and right-sided ribs. Pain began in February 2019, following a fall. 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 She underwent imaging, which showed right-sided rib fractures of ribs 5, 6, 7, she did not have an epidural placed at that time for pain management. Her current medications include Harrison, Toradol, gabapentin, these are just taking the edge off the pain. She has had intramuscular steroid injections, which help with the pain for approximately one day. She denies side effects from medications. She rates her sternal pain as 7/10, described as burning, stabbing. Massage, heat, ice tend to aggravate the pain. She rates her right-sided rib pain as 5/10, described as stabbing. The rib pain has been gradually improving since the fall, however the sternal pain has remained the same. This pain will occasionally radiate to her sternum. She states that she can feel the ribs on her right side as well as her sternum "pop" when she takes a deep breath. She describes a "sticking/cracking sensation" in her ribs and sternum. She has also been using a pillow against her sternum to help reduce the pain. She states that since the fall, she has been unable to work and the pain has essentially made her an invalid. 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 She has been off work since the fall in February. She has not been evaluated by a surgeon. She follows with neurologist, Dr. Davenport, who has referred her to [facility] neurology department for her vestibular neuritis. She is yet to see them. Patient also denies new-onset weakness, bowel/bladder incontinence, or any other signs or symptoms of cauda equina syndrome. There are no signs of acute intoxication, and no indications of medication diversion or overuse. She was tearful during our interview. In addition to above, 13-point review of systems is also negative for chest pain, shortness of breath, changes in vision, changes in hearing, new onset weakness, abdominal pain, diarrhea, extreme fatigue, malaise, fever, skin changes, homicidal or suicidal ideation, or bowel or bladder incontinence. Of note, she followed with our pain clinic approximately 5 years ago and underwent lumbar radiofrequency ablation with excellent results. She also has Ulcerative colitis with years of steroid use and resulting osteoporosis Past Medical History Past Medical History: Cancer, COPD, GERD/Reflux, Osteoarthritis (OA), Vascular Disorder Additional Past Medical History / Comment(s): ulcerative colitis, migraines, ana m ycystic ovaries, gets edema in ankles, sm hiatal hernia, degenerative disk disease, 3 fx ribs-broken cartiladge from fall, hypoglycemia, hx kidney stones, hx skin cancer, vertigo History of Any Multi-Drug Resistant Organisms: None Reported Past Surgical History: Hysterectomy, Orthopedic Surgery Additional Past Surgical History / Comment(s): RT KNEE ACL, KIDNEY SURGERY CHILD, MULTIPLE D&Cs, rogelio ureter reconstruction, rt knee arthroscopy, surgery to remove staple in rt tibia, lipoma from sternal notch, colonoscopy, surgeries on left hand middle finger(glass removed and tendon repair), rectocele repair Past Anesthesia/Blood Transfusion Reactions: Motion Sickness, Postoperative Nausea & Vomiting (PONV) Additional Past Anesthesia/Blood Transfusion Reaction / Comm: vertigo Past Psychological History: No Psychological Hx Reported Smoking Status: Former smoker Past Alcohol Use History: None Reported Additional Past Alcohol Use History / Comment(s): smoked 1-2 yrs as teen Past Drug Use History: None Reported - Past Family History Father Family Medical History: Cancer, Deep Vein Thrombosis (DVT) Additional Family Medical History / Comment(s): skin Sister(s) Family Medical History: Deep Vein Thrombosis (DVT) Medications and Allergies Home Medications Medication Instructions Recorded Confirmed Type Diazepam [Valium] 5 mg PO BID 09/25/18 06/03/19 History Gabapentin [Neurontin] 300 mg PO AC-BID 09/25/18 06/03/19 History Gabapentin [Neurontin] 600 mg PO HS 09/25/18 06/03/19 History Hydrocodone/Acetaminophen [Harrison 1 tab PO Q4H 09/25/18 06/03/19 History 10-325] Meclizine [Antivert] 25 mg PO QID 09/25/18 06/03/19 History Ondansetron HCl [Zofran] 8 mg PO TID PRN 09/25/18 06/03/19 History Simvastatin [Zocor] 20 mg PO HS 09/25/18 06/03/19 History Loratadine-Pseudoeph 10-240 mg 1 tab PO DAILY 11/25/18 06/03/19 History [Claritin-D 24 Hr] Mesalamine [Canasa] 1,000 mg RECTAL HS 11/25/18 06/03/19 History Progesterone, Micronized 400 mg PO HS 11/26/18 06/03/19 History [Progesterone] Ergocalciferol [Vitamin D2] 50,000 unit PO Q15D 06/01/19 06/03/19 History Hydrochlorothiazide [Hydrodiuril] 50 mg PO BID 06/01/19 06/03/19 History Spironolactone 100 mg PO BID 06/01/19 06/03/19 History Vitamin E (Dl,Tocopheryl Acet) 400 unit PO DAILY 06/01/19 06/03/19 History [Vitamin E] Ketorolac [Toradol] 10 mg PO BID 06/03/19 06/03/19 History Allergies Allergy/AdvReac Type Severity Reaction Status Date / Time Iodinated Contrast Media Allergy Severe Anaphylaxis Verified 06/01/19 14:38 [Iodinated Contrast Media - IV Dye] latex Allergy Rash/Hives Verified 06/01/19 14:38 nickel Allergy Rash/Hives Verified 06/01/19 14:38 sumatriptan [From Imitrex] AdvReac "heart was Verified 06/01/19 14:38 pounding" MRI CONTRAST Allergy Severe Anaphylaxis Uncoded 06/01/19 14:38 Physical Exam Physical exam: Vital Signs: Reviewed in EMR GENERAL: Tearful, in mild distress PSYCH: Mood and affect is appropriate. Awake, alert, and oriented SKIN: Skin color, texture, turgor normal, no rashes or lesions HEENT: Normocephalic, atraumatic. EOM intact CV: No pedal edema RESP: Respirations are unlabored, no audible wheezing GI: Abdomen non-distended MUSCULOSKELETAL: Patient is guarding her right chest wall with right arm. She is a pillow placed against her sternum. Extreme tenderness to palpation of right costo sternal junction as well as right rib cage, likely ribs 5, 6, 7. Mild tenderness to palpation of left costo-sternal junction. No rash, no redness or deformities noted. Extremities: Peripheral joint ROM is full and pain free without obvious instability or laxity in all four extremities. No edema or skin discolorations noted. Gait: Gait is slow, guarded NEUR: Bilateral upper extremity coordination and muscle stretch reflexes are physiologic and symmetric. No loss of sensation is noted. Cranial nerves are grossly intact. Results Results: Imaging: Nuclear medicine bone scan done at [facility] on 05/14/2019 shows mild diffuse uptake at costochondral junctions it could be physiologic or related to costochondritis. Degenerative changes of axial skeleton. CT chest done at [facility] on 04/30/2019 shows no displaced rib fractur es. Costochondral cartilage calcification present. X-ray ribs done at [facility] on 03/12/2019 shows intervertebral healing of known nondisplaced lateral right rib 5 and 6 fractures that are subacute and visualization of a subacute lateral right seventh rib fracture Assessment and Plan Assessment: Assessment: 1. Costochondritis 2. Right-sided rib fractures5, 6, 7 with resulting pain 3. Obesity 4. Vestibular neuritis with vertigo and falls 5. Ulcerative colitis with years of steroid use and resulting osteoporosis Plan: Plan: 1. Explanation: We discussed that her right-sided costosternal junction pain is likely due to inflammation and costochondritis, she would likely benefit from a localized steroid injection. For her right-sided rib pain, she will likely benefit from intercostal nerve blocks at ribs 5, 6, 7 with steroid. 2. Opioid agreement: None 3. Counseling: None 4. Procedures: We'll schedule right costo sternal junction steroid injection as well as right-sided intercostal nerve blocks at ribs 5, 6, 7. 5. Consultations: None 6. Investigations: Imaging reviewed 7. Medications: No changes. Managed by primary care physician. Agree with current management. 8. Disposition: For above-mentioned procedure PQRS Measure Charge Sheet PQRS Narrative: Smoking Status Former smoker Pain Intensity [Right Flank] 5 Pain Intensity [Chest] 7 Hx Alcohol Use (MH) No Home Medications: Ambulatory Orders Diazepam [Valium] 5 mg PO BID 09/25/18 Gabapentin [Neurontin] 300 mg PO AC-BID 09/25/18 Gabapentin [Neurontin] 600 mg PO HS 09/25/18 Hydrocodone/Acetaminophen [Harrison 10-325] 1 tab PO Q4H 09/25/18 Meclizine [Antivert] 25 mg PO QID 09/25/18 Ondansetron HCl [Zofran] 8 mg PO TID PRN 09/25/18 Simvastatin [Zocor] 20 mg PO HS 09/25/18 Loratadine-Pseudoeph 10-240 mg [Claritin-D 24 Hr] 1 tab PO DAILY 11/25/18 Mesalamine [Canasa] 1,000 mg RECTAL HS 11/25/18 Progesterone, Micronized [Progesterone] 400 mg PO HS 11/26/18 Ergocalciferol [Vitamin D2] 50,000 unit PO Q15D 06/01/19 Hydrochlorothiazide [Hydrodiuril] 50 mg PO BID 06/01/19 Spironolactone 100 mg PO BID 06/01/19 Vitamin E (Dl,Tocopheryl Acet) [Vitamin E] 400 unit PO DAILY 06/01/19 Ketorolac [Toradol] 10 mg PO BID 06/03/19
== END | disposition home or self-care (01) ==
LOC: PNWHC3 10:18
PROVIDERS: ATTEND Anesthesiology
DX: G89.29 Other chronic pain (principal); M94.0 Chondrocostal junction syndrome [Tietze]; S22.41XA Multiple fractures of ribs, right side, initial encounter for closed fracture; E66.9 Obesity, unspecified; R42 Dizziness and giddiness; H93.3X9 Disorders of unspecified acoustic nerve; S23.421D Sprain of chondrosternal joint, subsequent encounter; Z91.040 Latex allergy status; Z91.048 Other nonmedicinal substance allergy status; Z88.9 Allergy status to unspecified drugs, medicaments and biological substances; Z79.891 Long term (current) use of opiate analgesic; Z79.1 Long term (current) use of non-steroidal anti-inflammatories (NSAID); Z79.899 Other long term (current) drug therapy
CPT/HCPCS: 99211

== ENCOUNTER 2019-06-14 06:06 | Day surgery (SDC) | payer MEDICAID, BC ==
[2019-06-10 15:22] VITALS: BMI 33.8
[~2019-06-14 06:06] MED LIST changes: +LACTATED RINGERS 1,000 ML IV SCH; -ceFAZolin IN SWFI 2 GM/20 ML SYRINGE IVP ONE
[2019-06-14 06:37] VITALS: TEMP 98.5
[2019-06-14] MEDS ORDERED: IV FLUID CONTINUATION 1,000 ML IV ONE (07:54)
[2019-06-14 08:00] VITALS: RESP 16
[2019-06-14 08:16] VITALS: BP 139/90; PULSE 64
--- NOTE | 2019-06-14 09:59 | FL ---
Fluoroscopy HISTORY: Pain 6 seconds fluoroscopy time supplied to the referring clinician. 1 intraoperative C-arm images docume nt the procedure. See dictated report from anesthesia.
--- NOTE | 2019-06-14 15:22 | P.PCN ---
Date of Procedure: 06/14/19 Procedure(s) Performed: Intercostal Nerve Block Attending: Franci Leon M.D. 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 Ultrasound was also used for the procedure and images saved to the patient's chart. PROCEDURE AND FINDINGS: The patient was greeted in the pre procedure holding area. The risk, benefits and alternatives to the procedure were again reviewed with the patient and written informed consent was placed in the chart. Prior to the procedure a time out was completed, verifying correct patient, procedure, site, positioning, and implants and/or special equipment. An IV line was placed. A 500 mL bag of NS was connected to the patient. The patient was taken to the procedure room. Routine monitors were applied including EKG leads, blood pressure cuff, and pulse oximetry. first, the patient was placed supine and the anterior chest was prepped and draped in the usual sterile fashion. A sterile ultrasound probe was prepped into the field. Area of maximum tenderness was localized using palpation, then a 21-gauge 2 inch Pajunk needle was advanced under continuous ultrasound guidance to the costal sternal joint. After negative aspiration, treatment solution consisting of 40 mg of Kenalog with 2 MLS of 0.5% ropivacaine was instilled. Ultrasound was utilized for needle placement and visualization of spread of medications. Then, the patient was positioned prone on the fluoroscopy table. The area of subcutaneous tissue on the right side(s) overlying the fourth, sixth, ninth, 10th levels was identified via palpation - these were the most tender ribs. The patient was prepped and draped in the usual sterile fashion. At this point, a radiopaque pointer was used to count all ribs corresponding to this level. Coming down from the 1st thoracic level the proper ribs were identified. The vertebral bodies were marked, and a point in the inferior margin of the corresponding ribs were identified and marked approximately 6 centimeters lateral to midline. At this point, the subcutaneous tissue and the skin was anesthetized using about 3 cc of 1% lidocaine at each level. This was accomplished with a 1-2 inch 25- gauge needle. Then, a 21-gauge Pajunk 100 mm needle was used and Os was contacted in each case and the tissue infiltration was done under live ultrasound guidance. The tip of the needle was walked off the inferior aspect of the rib and at that point, 2 mL's of treatment solution was injected at each level. Treatment solution consisted of 40 mg of Kenalog mixed with 7 mL's of 0.5% ropivacaine.. The needle was flushed and removed. The patient tolerated the procedure well. Patient was hemodynamically stable throughout and had no difficulty with respiration or coughing or shortness of breath. The patient was taken to the recovery room where they were monitored for a brief period of time. Patient tolerated the procedure well and were discharged home in stable condition with post procedural instructions. The patient had no questions prior to discharge. Patient was instructed to go to the emergency room should they develop sudden shortness of breath, coughing or difficulty with breathing. The patient will follow up in clinic in 4 weeks. Complications: none
== END 2019-06-14 08:35 | disposition home or self-care (01) ==
LOC: ORPAIN 06:06
PROVIDERS: ATTEND Anesthesiology
DX: G89.29 Other chronic pain (principal); M94.0 Chondrocostal junction syndrome [Tietze]; E66.9 Obesity, unspecified; H93.3X9 Disorders of unspecified acoustic nerve; R42 Dizziness and giddiness; K51.90 Ulcerative colitis, unspecified, without complications; J44.9 Chronic obstructive pulmonary disease, unspecified; K21.9 Gastro-esophageal reflux disease without esophagitis; M19.90 Unspecified osteoarthritis, unspecified site; I99.8 Other disorder of circulatory system; G43.909 Migraine, unspecified, not intractable, without status migrainosus; E28.2 Polycystic ovarian syndrome; K44.9 Diaphragmatic hernia without obstruction or gangrene; M51.9 Unspecified thoracic, thoracolumbar and lumbosacral intervertebral disc disorder; M81.8 Other osteoporosis without current pathological fracture; Z68.37 Body mass index [BMI] 37.0-37.9, adult; T38.0X5A Adverse effect of glucocorticoids and synthetic analogues, initial encounter; Z87.81 Personal history of (healed) traumatic fracture; Z79.891 Long term (current) use of opiate analgesic; Z91.81 History of falling; Z79.899 Other long term (current) drug therapy; Z79.52 Long term (current) use of systemic steroids; Z85.828 Personal history of other malignant neoplasm of skin; Z87.442 Personal history of urinary calculi; Z90.710 Acquired absence of both cervix and uterus; Z98.890 Other specified postprocedural states; Z87.898 Personal history of other specified conditions; Z91.89 Other specified personal risk factors, not elsewhere classified; Z87.891 Personal history of nicotine dependence; Z91.041 Radiographic dye allergy status; Z91.040 Latex allergy status; Z91.048 Other nonmedicinal substance allergy status; Z88.8 Allergy status to other drugs, medicaments and biological substances; Z80.8 Family history of malignant neoplasm of other organs or systems; Z82.49 Family history of ischemic heart disease and other diseases of the circulatory system
CPT/HCPCS: 64421; J2250; J3301; J3010; 20605; 64420; 99152; 99153

== ENCOUNTER 2019-07-15 06:00 | Day surgery (SDC) | payer MEDICAID, BC ==
[2019-07-12 15:19] VITALS: BMI 34.2
[~2019-07-15 06:00] MED LIST changes: +BUPIVACAINE (PF) 0.5% 30 ML VIAL ONE; -LACTATED RINGERS 1,000 ML IV SCH; +MIDAZOLAM 2 MG/2 ML VIAL ONE; +SODIUM CHLORIDE 0.9% (PF) 10 ML VIAL ONE; +TRIAMCINOLONE ACETONIDE 40 MG/ML 1 ML VIAL ONE; +fentaNYL (PF) 50 MCG/ML 2 ML AMP ONE
[2019-07-15] MEDS ORDERED: LACTATED RINGERS 1,000 ML IV SCH (06:08)
[2019-07-15 06:25] VITALS: TEMP 98.2
--- NOTE | 2019-07-15 07:55 | P.PCN ---
Date of Procedure: 07/15/19 Procedure(s) Performed: Intercostal Nerve Block costosternal joint injection Attending: Franci Leon M.D. 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 Ultrasound was also used for the procedure and images saved to the patient's chart. PROCEDURE AND FINDINGS: The patient was greeted in the pre procedure holding area. The risk, benefits and alternatives to the procedure were again reviewed with the patient and written informed consent was placed in the chart. Prior to the procedure a time out was completed, verifying correct patient, procedure, site, positioning, and implants and/or special equipment. An IV line was placed. A 500 mL bag of NS was connected to the patient. The patient was taken to the procedure room. Routine monitors were applied including EKG leads, blood pressure cuff, and pulse oximetry. first, the patient was placed supine and the anterior chest was prepped and draped in the usual sterile fashion. A sterile ultrasound probe was prepped into the field. Area of maximum tenderness was localized using palpation, then a 21-gauge 2 inch Pajunk needle was advanced under continuous ultrasound guidan ce to the costal sternal joint. After negative aspiration, 3 mL of treatment solution consisting of 40 mg of Kenalog with 3 MLS of 0.5% ropivacaine was instilled. This same procedure was repeated on the left side, 1 mL of treatment solution was instilled here. Ultrasound was utilized for needle placement and visualization of spread of medications. Then, the patient was positioned prone on the fluoroscopy table. The area of subcutaneous tissue on the right side(s) overlying the third, fourth, sixth, ninth, 10th levels was identified via palpation - these were the most tender ribs. The patient was prepped and draped in the usual sterile fashion. At this point, a radiopaque pointer was used to count all ribs corresponding to this level. Coming down from the 1st thoracic level the proper ribs were identified. The vertebral bodies were marked, and a point in the inferior margin of the corresponding ribs were identified and marked approximately 6 centimeters lateral to midline. At this point, a 21-gauge Pajunk 100 mm needle was used and Os was contacted in each case and the tissue infiltration was done under live ultrasound guidance. The tip of the needle was walked off the inferior aspect of the rib and at that point, 2 mL's of treatment solution was injected at each level. Treatment solution consisted of 40 mg of Kenalog mixed with 9 mL's of 0.5% ropivacaine. The needle was flushed and removed. The patient tolerated the procedure well. Patient was hemodynamically stable throughout and had no difficulty with respiration or coughing or shortness of breath. The patient was taken to the recovery room where they were monitored for a brief period of time. Patient tolerated the procedure well and were discharged home in stable condition with post procedural instructions. The patient had no questions prior to discharge. Patient was instructed to go to the emergency room should they develop sudden shortness of breath, coughing or difficulty with breathing. The patient will follow up for repeat procedure in 4 weeks. Complications: none
[2019-07-15] MEDS ORDERED: IV FLUID CONTINUATION 1,000 ML IV ONE (08:01)
[2019-07-15 08:04] VITALS: RESP 16
[2019-07-15 08:16] VITALS: BP 165/74; PULSE 75
--- NOTE | 2019-07-15 08:53 | FL ---
EXAMINATION TYPE: FL guided pain mgmt statistic DATE OF EXAM: 07/15/2019 CLINICAL HISTORY: Right intercostal rib pain. TECHNIQUE: Fluoroscopy. COMPARISON: None. FINDINGS: Fluoroscopic guidance was provided during pain relief procedure performed by Dr. Leon . A total of 5 seconds of fluoroscopic time was utilized during the procedure and two spot images are acq uired. Images acquired shows needle localization over right ribs. IMPRESSION: As Above.
== END 2019-07-15 08:33 | disposition home or self-care (01) ==
LOC: ORPAIN 06:00
PROVIDERS: ATTEND Anesthesiology
DX: G58.0 Intercostal neuropathy (principal); M19.90 Unspecified osteoarthritis, unspecified site; M94.0 Chondrocostal junction syndrome [Tietze]; S22.39XA Fracture of one rib, unspecified side, initial encounter for closed fracture; W19.XXXA Unspecified fall, initial encounter; Z90.710 Acquired absence of both cervix and uterus
CPT/HCPCS: 20605; 64420; J2250; J3301; J3010; 99152; 99153

== ENCOUNTER 2019-08-12 06:04 | Day surgery (SDC) | payer MEDICAID, BC ==
[2019-08-11 09:33] VITALS: BMI 34.5
[2019-08-12 06:27] VITALS: TEMP 98
[2019-08-12] MEDS: LACTATED RINGERS 1,000 ML IV SCH ×2 (06:34→07:05)
[2019-08-12 06:36] LABS: Glucose,Whole Blood 110 mg/dL (75-99)
[2019-08-12] MEDS ORDERED: ONDANSETRON 4 MG/2 ML VIAL IVP ONE (06:42)
[2019-08-12] MEDS ORDERED: IV FLUID CONTINUATION 1,000 ML IV ONE (07:41)
--- NOTE | 2019-08-12 07:41 | P.PCN ---
Date of Procedure: 08/12/19 Procedure(s) Performed: Intercostal Nerve Block costosternal joint injection Attending: Franci Leon M.D. 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 Ultrasound was also used for the procedure and images saved to the patient's chart. PROCEDURE AND FINDINGS: The patient was greeted in the pre procedure holding area. The risk, benefits and alternatives to the procedure were again reviewed with the patient and written informed consent was placed in the chart. Prior to the procedure a time out was completed, verifying correct patient, procedure, site, positioning, and implants and/or special equipment. An IV line was placed. A 500 mL bag of NS was connected to the patient. The patient was taken to the procedure room. Routine monitors were applied including EKG leads, blood pressure cuff, and pulse oximetry. first, the patient was placed supine and the anterior chest was prepped and draped in the usual sterile fashion. A sterile ultrasound probe was prepped into the field. Area of maximum tenderness was localized using palpation, then a 21-gauge 2 inch Pajunk needle was advanced under continuous ultrasound guidance to the costal sternal joint. After negative aspiration, 3 mL of treatment solution consisting of 40 mg of Kenalog with 3 MLS of 0.5% ropivacaine was instilled. This same procedure was repeated on the left side, 1 mL of treatment solution was instilled here. Ultrasound was utilized for needle placement and visualization of spread of medications. Then, the patient was positioned prone on the fluoroscopy table. The area of subcutaneous tissue on the right side(s) overlying the 11,12th levels was identified via palpation - these were the most tender ribs. The patient was prepped and draped in the usual sterile fashion. At this point, a radiopaque pointer was used to count all ribs corresponding to this level. Counting up from the 12rh rib, the proper ribs were identified. The vertebral bodies were marked, and a point in the inferior margin of the corresponding ribs were identified and marked approximately 6 centimeters lateral to midline. At this point, a 21-gauge Pajunk 100 mm needle was used and Os was contacted in each case and the tissue infiltration was done under live ultrasound guidance. The tip of the needle was walked off the inferior aspect of the rib and at that point, 1.5 mL's of treatment solution was injected at each level. Treatment solution consisted of 40 mg of Kenalog mixed with 3mL's of 0.5% ropivacaine. The needle was flushed and removed. The patient tolerated the procedure well. Patient was hemodynamically stable throughout and had no difficulty with respiration or coughing or shortness of breath. The patient was taken to the recovery room where they were monitored for a brief period of time. Patient tolerated the procedure well and were discharged home in stable condition with post procedural instructions. The patient had no questions prior to discharge. Patient was instructed to go to the emergency room should they develop sudden shortness of breath, coughing or difficulty with breathing. The patient will follow up in clinic in 4 weeks. Complications: none
[2019-08-12 07:50] VITALS: RESP 18
[2019-08-12 08:01] VITALS: BP 143/89; PULSE 89
--- NOTE | 2019-08-12 08:07 | FL ---
EXAMINATION TYPE: FL guided pain mgmt statistic DATE OF EXAM: 08/12/2019 CLINICAL HISTORY: Back pain. TECHNIQUE: Fluoroscopy. COMPARISON: None. FINDINGS: Fluoroscopic guidance was provided during pain relief procedure performed by Dr. Leon. A t otal of 1 seconds of fluoroscopic time was utilized during the procedure and 1 spot images are acquir ed. Images acquired shows localization near the thoracolumbar spine. IMPRESSION: As Above.
== END 2019-08-12 08:16 | disposition home or self-care (01) ==
LOC: ORPAIN 06:04
PROVIDERS: ATTEND Anesthesiology
DX: G58.0 Intercostal neuropathy (principal); M94.0 Chondrocostal junction syndrome [Tietze]; Z91.81 History of falling
CPT/HCPCS: 20605; 64420; J2250; J3301; J2405; J3010; 99152; 99153

== ENCOUNTER → 2019-09-09 | Outpatient (CLI) | payer MEDICAID, BC ==
[2019-09-09 13:14] VITALS: BP 124/87; RESP 18
[2019-09-09 13:16] VITALS: PULSE 109
--- NOTE | 2019-09-09 18:32 | P.PAINPG ---
Subjective Progress Note Date: 09/09/19 This is a follow-up visit for this 48 years old female, who had chronic right side anterior chest wall pain, mostly localized at the mid sternal area and towards the right hip area, all her symptoms started after she fell and she had rib fractures 5, 6, 7, we did intercostal nerve block x3 , and she got short- term benefit after each block, currently she is complaining of severe sternal pain increased with deep breathing, and she reported that the pain is associated with cracking sensation in the rib and sternum, she is not able to function, he can tolerate the intensity of the pain, interfering with her quality of life, she continued to use pain medication [place] 10/325 one to 2 tablets every 6 hours when necessary, and she is currently on Mobic 7.5 mg twice a, denies any side effect of the medication, and she reported that the current medication helping her to improve her symptoms Objective - Vital Signs Vital signs: Vital Signs Temp Pulse 109 H 09/09/19 12:55 Resp 18 09/09/19 12:55 BP 124/87 09/09/19 12:55 Pulse Ox 95 09/09/19 12:55 - Exam Physical Examinations : -Constitutiona : Cooperative , anxious, mild distress -HEENT : nech : supple , no Lymphadenopathy , normal thyroid size . : eyes : no ptosis , no icterus, no photophobia . : ENT : normal of hearing , normal oropharynx , no Thrush . - Respiratory : Patient is guarding right side chest wall with her right arm Severe tenderness to palpation of the lower part of the sternum - Cardiovascula : regular rate and rhythem , S1 , S2 , no S3 , no S4. - Gastrointestina : abdomen soft no tenderness , bowel sounds , no organomegally . - Genitourinary : Defferred . - neurologic : Cranial nerve II to XII intact , no focal neurological deffecit . -psychatric : alert , oriented X 3 , appropriate affect , intact judgment and insight . -Lymphatic : no Lymphadenopathy . - musculoskeltal : Lumber spine moter stegnth lower extremities ,thigh and legs 5/5 Right side , 5/5 Left side - Constitutional Constitutional Comment(s): Bone scan= mild diffuse uptake of costochondral junction could be secondary to costochondritis. Computed tomography scan of the thorax right hip fracture T5-T6 Assessment and Plan Plan: Assessment and plan= chest wall pain , rib fractures with nondisplaced rib fractures, patient continued to have severe chest wall pain , almost 6 months after the fracture, patient had short-term benefit from intercostal nerve block, patient had severe tenderness over the lower part of the sternum, I explained to the patient that the best option at this point is to refer her to cardiothoracic surgery for evaluation, Patient currently on [place] 10/325 one to 2 tablets every 6 hours when necessary and Mobic 7.5 mg twice a day she denies any side effects of the medication, and she is getting prescription refills from her primary care. Time with Patient: Less than 30 PQRS Measure Charge Sheet Measure #130: Documentation of Current Meds in Medical Chart: Patient's medications documented in chart Measure #226: Tobacco Use: Screen & Cessation Intervention: Pt not a tobacco user Measure #111: Pneumonia Vaccination: Pneumococcal vaccine NOT administered or previously given Measure #47: Advance Care Plan: Advance care planning discussed & documented, pt chose/unable to give Measure #412: Opioid Treatment Agreement: No documentation of signed opioid treatment agreement Measure #408: Opioid Therapy Follow-up Evaluation: Patient had NO f/u eval minimum every 3 months during opioid therapy Measure #317: Preventitive Care & Scrn High Bld Press & F/U: Normal blood pressure, f/u not required Measure #128: Body Mass Index (BMI) Screening & Follow-up: BMI documented ABOVE normal parameters - f/u documented Measure #131: Pain Assessment & Follow-up: Pain positive & plan documented, Follow-up PRN Measure #431: Unhealthy Alcohol Use Preventative Care & Scrn: Patient not identified as an unhealthy alcohol user PQRS Narrative: Smoking Status Former smoker Blood Pressure 124/87 Pain Intensity [Chest] 6 Pain Intensity [Right Flank] 3 Scale Used Numeric (1 - 10) Hx Alcohol Use (MH) No Home Medications: Ambulatory Orders Diazepam [Valium] 5 mg PO BID 09/25/18 Gabapentin [Neurontin] 300 mg PO AC-BID 09/25/18 Gabapentin [Neurontin] 600 mg PO HS 09/25/18 Hydrocodone/Acetaminophen [[place] 10-325] 1 - 2 tab PO Q4H 09/25/18 Meclizine [Antivert] 25 mg PO QID 09/25/18 Ondansetron HCl [Zofran] 8 mg PO TID PRN 09/25/18 Mesalamine [Canasa] 1,000 mg RECTAL HS 11/25/18 Progesterone, Micronized [Progesterone] 400 mg PO HS 11/26/18 Ergocalciferol [Vitamin D2] 50,000 unit PO Q14D 06/01/19 Hydrochlorothiazide [Hydrodiuril] 50 mg PO BID 06/01/19 Spironolactone 100 mg PO BID 06/01/19 Vitamin E (Dl,Tocopheryl Acet) [Vitamin E] 400 unit PO DAILY 06/01/19 Meloxicam [Mobic] 7.5 mg PO BID 09/09/19 Controlled Substance Measures - Controlled Substance Measures Is patient prescribed a controlled substance at discharge?: No
== END | disposition home or self-care (01) ==
LOC: PNWHC3 12:54
PROVIDERS: ATTEND Specialist
DX: G89.29 Other chronic pain (principal); R07.89 Other chest pain; S22.39XA Fracture of one rib, unspecified side, initial encounter for closed fracture; Z87.891 Personal history of nicotine dependence; Z79.891 Long term (current) use of opiate analgesic; Z79.1 Long term (current) use of non-steroidal anti-inflammatories (NSAID); Z79.899 Other long term (current) drug therapy
CPT/HCPCS: 99211

== ENCOUNTER → 2020-05-27 | Outpatient (CLI) | payer BC ==
--- NOTE | 2020-05-27 08:58 | MR ---
EXAMINATION TYPE: MR brain wo/w [place] DATE OF EXAM: 05/27/2020 COMPARISON: Prior MRI cervical spine January 13, 2015. Prior CT brain February 14, 2010. Prior MRI brain F ebruary 2017 HISTORY: Severe vertigo, chronic pain syndrome, migraine. Cervicalgia. Other cervical disc degenerati on all per order. Migraine headaches with dizziness and vision changes along with severe vertigo all per patient. Neck pain causing pain or numbness into bilateral arms and fingers for 1.5 years per pat ient. TECHNIQUE: Multiplanar, multisequence images of the brain and brainstem is performed without and with IV contras t, utilizing 10 mL intravenous Gadavist . MRI cervical spine without contrast. FINDINGS: BRAIN: Diffusion weighted images demonstrate no evidence of a recent infarct or other diffusion abnormality. There is no extra-axial fluid collection or new significant white matter signal abnormality. Stable 6 mm T2 hyperintense lesion posterior right frontal lobe axial image 20. Stable 4 mm T2 hyperintense lesion anterior right frontal lobe axial image 16. The ventricular system and cisternal spaces are n ormal in size and appearance. The brain volume is age appropriate. T2*weighted images show no suspic ious intraparenchymal blood product. Midline structures demonstrate normal morphology. The craniocervical junction appears within normal limits. Post contrast images demonstrate no abnormal enhancement. The dural venous sinuses appear pa tent. The visualized sinuses are clear and the globes are intact. No suspicious new fluid signal bila teral mastoid air cells. IMPRESSION: Mild to minimal nonspecific white matter changes redemonstrated. No enhancing lesions see n. No significant change from prior MRI. Cervical spine: FINDINGS: Sagittal images of the cervical spine show the craniocervical junction to remain within nor mal limits. The cervical and upper thoracic spinal cord remains normal in course, caliber, and signa l. Slight grade 1 retrolisthesis C3 on C4 and to lesser degree C4-C5 and C5 on C6 is redemonstrated a nd stable. The vertebral body and intravertebral disk heights remain normal. The bone marrow signal intensity is within normal limits. Axial images show C2-C3 level to remain within normal limits. Axial images at C3-C4 level show spondylolisthesis with broad based left paracentral disc protrusion mildly effacing the anterior thecal sac and causing mild left-sided neural foraminal narrowing. No si gnificant change from prior. Axial images at C4-C5 level with subtle spondylolisthesis with right foraminal spur disc complex caus ing mild right-sided neural foraminal narrowing, no significant change from prior. Axial images at C5-C6, C6-C7, and C7-T1 levels remain within normal limits. IMPRESSION: Mild multilevel spondylolisthesis and degenerative changes in the upper to mid cervical s pine as detailed above. No significant change or progression from prior MRI.
== END | disposition home or self-care (01) ==
LOC: RADMRIMAIN 07:21
PROVIDERS: ATTEND Family Medicine
DX: R90.89 Other abnormal findings on diagnostic imaging of central nervous system (principal); M48.02 Spinal stenosis, cervical region; M50.221 Other cervical disc displacement at C4-C5 level; M43.12 Spondylolisthesis, cervical region; G89.4 Chronic pain syndrome
CPT/HCPCS: 70553; 72141; A9585

== ENCOUNTER 2020-08-22 05:05 | Observation (INO) | payer BC ==
--- NOTE | 2020-08-22 05:22 | ED ---
Chest Pain HPI - General Chief Complaint: Chest Pain Stated Complaint: chest pain Time Seen by Provider: 08/22/20 05:17 Source: patient, family Mode of arrival: wheelchair Limitations: no limitations - History of Present Illness Initial Comments: This patient is a 49-year-old woman presenting with onset of chest pain around 3 AM, in association with a funny feeling in her left arm. The patient states there is family history of heart disease. MD Complaint: chest pain Onset/Timin -: hour(s) Onset: during rest Pain Location: substernal Pain Radiation: LUE Severity: moderate Quality: aching Consistency: constant Improves With: nothing Worsens With: nothing Treatments Prior to Arrival: none - Related Data Home Medications Medication Instructions Recorded Confirmed Diazepam [Valium] 5 mg PO BID 09/25/18 08/22/20 Hydrocodone/Acetaminophen [[place] 1 tab PO Q4H 09/25/18 08/22/20 10-325] Meclizine [Antivert] 25 mg PO TID 09/25/18 08/22/20 ondansetron HCL [Zofran] 8 mg PO TID PRN 09/25/18 08/22/20 Progesterone, Micronized 400 mg PO HS 11/26/18 08/22/20 [Progesterone] Spironolactone 100 mg PO BID 06/01/19 08/22/20 Vitamin E (Dl,Tocopheryl Acet) 400 unit PO DAILY 06/01/19 08/22/20 [Vitamin E] Cholecalciferol (Vitamin D3) 125 mcg PO DAILY 08/22/20 08/22/20 [Vitamin D3 (5000 Iu)] Loratadine-Pseudoeph 5-120 mg 1 tab PO DAILY 08/22/20 08/22/20 [Claritin-D 12 Hour] Zolpidem [Ambien] 10 mg PO HS PRN 08/22/20 08/22/20 Previous Rx's Medication Instructions Recorded Atorvastatin [Lipitor] 20 mg PO HS 30 Days #30 tab 08/23/20 Allergies Allergy/AdvReac Type Severity Reaction Status Date / Time Iodinated Contrast Media Allergy Severe Anaphylaxis Verified 08/22/20 07:38 [Iodinated Contrast Media - IV Dye] latex Allergy Rash/Hives Verified 08/22/20 07:38 nickel Allergy Rash/Hives Verified 08/22/20 07:38 lisinopril AdvReac BP dropped Verified 08/22/20 07:38 and she passed out sumatriptan [From Imitrex] AdvReac "heart was Verified 08/22/20 07:38 pounding" MRI CONTRAST AdvReac Severe states no Uncoded 08/22/20 07:38 issue last time Review of Systems ROS Statement: Those systems with pertinent positive or pertinent negative responses have been documented in the HPI. ROS Other: All systems not noted in ROS Statement are negative. Constitutional: Denies: fever, chills Respiratory: Denies: cough, dyspnea Cardiovascular: Reports: chest pain. Denies: palpitations, orthopnea, edema, syncope Gastrointestinal: Denies: abdominal pain, nausea, vomiting Genitourinary: Denies: dysuria, hematuria Musculoskeletal: Denies: back pain Skin: Denies: rash Neurological: Denies: headache, weakness EKG Findings - EKG Results: EKG: interpreted by ERMD, sinus rhythm (rate 62), normal axis, normal QRS, normal ST/T, no acute changes Past Medical History Past Medical History: Cancer, GERD/Reflux, Osteoarthritis (OA), Vascular Disorder Additional Past Medical History / Comment(s): ulcerative colitis, migraines, polycystic ovaries, gets edema in ankles, sm hiatal hernia, degenerative disk disease, 3 fx ribs-broken cartiladge from fall, hypoglycemia, hx kidney stones, hx skin cancer, vertigo History of Any Multi-Drug Resistant Organisms: None Reported Past Surgical History: Hysterectomy, Orthopedic Surgery Additional Past Surgical History / Comment(s): RT KNEE ACL, KIDNEY SURGERY CHILD, MULTIPLE D&Cs, rogelio ureter reconstruction, rt knee arthroscopy, surgery to remove staple in rt tibia, lipoma from sternal notch, colonoscopy, surgeries on left hand middle finger(glass removed and tendon repair), rectocele repair, PAIN CLINIC PROCEDURES Past Anesthesia/Blood Transfusion Reactions: Motion Sickness, Postoperative Nausea & Vomiting (PONV) Additional Past Anesthesia/Blood Transfusion Reaction / Comment(s): vertigo Past Psychological History: No Psychological Hx Reported Past Alcohol Use History: None Reported Past Drug Use History: None Reported - Past Family History Father Family Medical History: Cancer, Deep Vein Thrombosis (DVT) Additional Family Medical History / Comment(s): skin Sister(s) Family Medical History: Deep Vein Thrombosis (DVT) Mother Family Medical History: Hyperlipidemia, Rheumatoid Arthritis (RA) Additional Family Medical History / Comment(s): Mother had rheumatic fever/valve disease. General Exam Limitations: no limitations General appearance: alert, in no apparent distress Head exam: Present: atraumatic, normocephalic Eye exam: Present: normal appearance. Absent: scleral icterus, conjunctival injection ENT exam: Present: normal oropharynx Neck exam: Present: normal inspection Respiratory exam: Present: normal lung sounds bilaterally. Absent: respiratory distress, wheezes, rales, rhonchi, stridor Cardiovascular Exam: Present: regular rate, normal rhythm, normal heart sounds. Absent: systolic murmur, diastolic murmur, rubs, gallop GI/Abdominal exam: Present: soft. Absent: distended, tenderness, guarding, rebound, rigid, mass Extremities exam: Present: normal inspection, normal capillary refill. Absent: pedal edema, calf tenderness Back exam: Present: normal inspection Neurological exam: Present: alert Skin exam: Present: warm, dry, intact, normal color. Absent: rash Course Vital Signs 08/22/20 08/22/20 05:09 07:21 Temperature 98.1 F Pulse Rate 76 80 Respiratory 20 18 Rate Blood Pressure 117/83 124/72 O2 Sat by Pulse 98 98 Oximetry Chest Pain MDM - MDM Patient's 49-year-old woman presenting with chest pain that had come on acutely, with left upper extremity component. She does state there is family history. Given this will admit for serial enzymes, telemetry monitoring, cardiology consultation. Initial workup is negative. Disposition Clinical Impression: Chest pain Disposition: ADMITTED IP TO THIS HOSP Condition: Fair
[2020-08-22] MEDS ORDERED: MORPHINE SULFATE 4 MG/ML SYRINGE IV STA ×2 (05:28→06:44)
[2020-08-22] MEDS ORDERED: ONDANSETRON 4 MG/2 ML VIAL IVP STA (05:28)
[2020-08-22 05:55] LABS: Basophils % (A) 1 %; Eosinophils # (A) 0.1 k/uL (0-0.7); Eosinophils % (A) 1 %; HGB 15.5 gm/dL (11.4-16.0); Lymphocytes # (A) 1.5 k/uL (1.0-4.8); Lymphocytes % (A) 16 %; MCH 31.5 pg (25.0-35.0); MCHC 35.2 g/dL (31.0-37.0); MCV 89.7 fL (80.0-100.0); Monocytes # (A) 0.6 k/uL (0-1.0); Monocytes % (A) 7 %; Neutrophils % (A) 75 %; Platelet Count 428 k/uL (150-450); RDW 12.7 % (11.5-15.5); WBC 9.4 k/uL (3.8-10.6)
[2020-08-22 05:57] LABS: Albumin 4.9 g/dL (3.5-5.0); Calcium 10.3 mg/dL (8.4-10.2); Magnesium 1.5 mg/dL (1.6-2.3); Potassium 3.8 mmol/L (3.5-5.1); Total Bilirubin 0.9 mg/dL (0.2-1.3); Total Protein 8.3 g/dL (6.3-8.2)
[2020-08-22 06:03] LABS: D-Dimer <0.17 mg/L FEU (<0.60); Partial Thromboplastin Time 23.1 sec (22.0-30.0); Prothrombin Time 10.5 sec (9.0-12.0)
--- NOTE | 2020-08-22 06:11 | XR ---
EXAM: XR Chest, 2 Views CLINICAL HISTORY: ITS.REASON XR Reason: Chest Pain TECHNIQUE: Frontal and lateral views of the chest. COMPARISON: Chest CT scan April 30, 2019 FINDINGS/IMPRESSION: Low lung volumes secondary to poor inspiration. No focal infiltrate. No pleural effusion or pneumothorax. Cardiomegaly.
[2020-08-22] MEDS ORDERED: NITROGLYCERIN SL TABS 0.4 MG TAB SUBLINGUAL PRN (06:45)
[2020-08-22] MEDS ORDERED: ONDANSETRON 4 MG TAB PO PRN (06:46)
[2020-08-22 07:28] LABS: Appearance,Urine Cloudy (Clear); Bacteria,Urine Rare /hpf; Bilirubin,Urine Negative (Negative); Blood,Urine Negative (Negative); Color,Urine Yellow; Glucose,Urine (UA) Negative (Negative); Ketones,Urine Negative (Negative); Leukocyte Esterase,Urine Negative (Negative); Mucus,Urine Rare /hpf; Nitrite,Urine Negative (Negative); Protein,Urine Trace (Negative); Specific Gravity,Urine 1.009 (1.001-1.035); Squamous Epithelial Cell,Urine 17 /hpf (0-4); Urobilinogen,Urine <2.0 mg/dL (<2.0); WBC,Urine 9 /hpf (0-5)
[2020-08-22] MEDS ORDERED: GABAPENTIN 300 MG CAP PO SCH ×2 (07:30→21:00)
[2020-08-22] MEDS: HYDROcodone/APAP 10-325MG 1 EACH TAB PO SCH ×5 (07:54→23:54)
[2020-08-22] MEDS ORDERED: MELOXICAM 7.5 MG TAB PO SCH (09:00)
[2020-08-22] MEDS ORDERED: hydroCHLOROthiazide 25 MG TAB PO SCH (09:00)
[2020-08-22] MEDS: MECLIZINE 25 MG TAB PO SCH ×3 (09:03→21:55)
[2020-08-22] MEDS: diazePAM 5 MG TAB PO SCH ×2 (09:03→19:22)
[2020-08-22] MEDS ORDERED: DOBUTamine DRIP for NUC MED 500 MG in DEXTROSE/WATER 1 250ML.BAG IV PRN (10:08)
--- NOTE | 2020-08-22 10:08 | P.CRDCN ---
History of Present Illness Consult date: 08/22/20 History of present illness: CHIEF COMPLAINT: Chest pain HISTORY OF PRESENT ILLNESS: This is a 49-year-old female with a past medical history significant for GERD, osteoarthritis, hypoglycemia, migraines, and costochondritis. 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 We have been asked to see the patient in consultation for chest pain. Patient examined this morning in the emergency room. Patient states that she has not had a history of hypertension in the past. However she was taking Claritin which increased her blood pressure over the last few months. She states she was started on lisinopril by her primary care physician because of this. She states that she switched her allergy medication recently but continued taking the lisinopril and has noticed her pressure has been running on the low side. She reports waking up at 0300 with severe chest pain. She reports feeling short of breath and states it was hard to take a deep breath due to the pain. She denied any nausea or vomiting. She reports that the pain was worse with deep inspiration but states she has a history of costochondritis so she is not sure if it is related to that. She states that she took her blood pressure at home and it was 60/40. Blood pressure documented in the emergency room was 117/83 with heart rate in the 70s. She states she has not taken her lisinopril and a few days but is unsure of the exact day in which she last took it. She also reports left arm numbness which she did not realize she had until she came to the emergency room and had a tourniquet around her left arm to start an IV and she was unable to feel it. She states most of the feeling in her left arm has returned but she does have some numbness in her fingers. Patient denies a history of nicotine dependence or alcohol use. She states she had a stress test in the which was normal to her recollection. DIAGNOSTICS: EKG reveals sinus mechanism with slight ST depression in V4 through V6 Chest xray cardiomegaly. No focal infiltrate. Low lung volumes secondary to poor inspiration Laboratory data: WBC 9.4. Hemoglobin 15.5. Platelet count 420. D-dimer 0.17. Sodium 134. Potassium 3.8. BUN 15. Creatinine 1.11. Magnesium 1.5. Troponin negative 2 Current home cardiac medications include hydrochlorothiazide 25 mg twice a day and spironolactone 100 mg twice a day REVIEW OF SYSTEMS: At the time of my exam: CONSTITUTIONAL: Denies fever or chills. HEENT: Denies blurred vision, vision changes, or eye pain. Denies hemoptysis CARDIOVASCULAR: Denies chest pain, orthopnea, PND or palpitations RESPIRATORY: No shortness of breath. GASTROINTESTINAL: Denies abdominal pain. Denies nausea or vomiting. HEMATOLOGIC: Denies bleeding disorders. GENITOURINARY: Denies any blood in urine. SKIN: Denies pruitis. Denies rash. PHYSICAL EXAM: VITAL SIGNS: Reviewed. GENERAL: Well-developed in no acute distress. HEENT: Head is normocephalic. Pupils are equal, round. Sclerae anicteric. Mucous membranes of the mouth are moist. Neck supple. No JVD or thyromegaly LUNGS: Respirations even and unlabored. Lungs essentially clear to auscultation bilaterally. HEART: Regular rate and rhythm. S1 and S2 heard. ABDOMEN: Soft. Nondistended. Nontender. EXTREMITIES: Normal range of motion. No clubbing or cyanosis. Peripheral pulses intact. No lower extremity edema NEUROLOGIC: Awake and alert. Oriented x 3. ASSESSMENT: Chest pain, troponins negative 2 Left arm numbness Hypotension per patient, normotensive on arrival to ER History of osteochondritis History of lower extremity edema Hypomagnesemia PLAN: Continue to trend troponins Obtain 2-D echo to assess cardiac structure and function Monitor blood pressure Replace magnesium Recommend neurology consult for left arm numbness Patient will tentatively be scheduled for dobutamine stress test tomorrow Further recommendations pending patient's course Nurse practitioner note has been reviewed by physician. Signing provider agrees with the documented findings, assessment, and plan of care. Past Medical History Past Medical History: Cancer, GERD/Reflux, Osteoarthritis (OA), Vascular Disorder Additional Past Medical History / Comment(s): ulcerative colitis, migraines, polycystic ovaries, gets edema in ankles, sm hiatal hernia, degenerative disk disease, 3 fx ribs-broken cartiladge from fall, hypoglycemia, hx kidney stones, hx skin cancer, vertigo History of Any Multi-Drug Resistant Organisms: None Reported Past Surgical History: Hysterectomy, Orthopedic Surgery Additional Past Surgical History / Comment(s): RT KNEE ACL, KIDNEY SURGERY CHILD, MULTIPLE D&Cs, rogelio ureter reconstruction, rt knee arthroscopy, surgery to remove staple in rt tibia, lipoma from sternal notch, colonoscopy, surgeries on left hand middle finger(glass removed and tendon repair), rectocele repair, PAIN CLINIC PROCEDURES Past Anesthesia/Blood Transfusion Reactions: Motion Sickness, Postoperative Nausea & Vomiting (PONV) Additional Past Anesthesia/Blood Transfusion Reaction / Comment(s): vertigo Past Psychological History: No Psychological Hx Reported Past Alcohol Use History: None Reported Past Drug Use History: None Reported - Past Family History Father Family Medical History: Cancer, Deep Vein Thrombosis (DVT) Additional Family Medical History / Comment(s): skin Sister(s) Family Medical History: Deep Vein Thrombosis (DVT) Medications and Allergies Home Medications Medication Instructions Recorded Confirmed Type Diazepam [Valium] 5 mg PO BID 09/25/18 08/22/20 History Hydrocodone/Acetaminophen [[place] 1 tab PO Q4H 09/25/18 08/22/20 History 10-325] Meclizine [Antivert] 25 mg PO TID 09/25/18 08/22/20 History ondansetron HCL [Zofran] 8 mg PO TID PRN 09/25/18 08/22/20 History Progesterone, Micronized 400 mg PO HS 11/26/18 08/22/20 History [Progesterone] Spironolactone 100 mg PO BID 06/01/19 08/22/20 History Vitamin E (Dl,Tocopheryl Acet) 400 unit PO DAILY 06/01/19 08/22/20 History [Vitamin E] hydroCHLOROthiazide [Hydrodiuril] 25 mg PO BID 06/01/19 08/22/20 History Cholecalciferol (Vitamin D3) 125 mcg PO DAILY 08/22/20 08/22/20 History [Vitamin D3 (5000 Iu)] Loratadine-Pseudoeph 5-120 mg 1 tab PO DAILY 08/22/20 08/22/20 History [Claritin-D 12 Hour] Zolpidem [Ambien] 10 mg PO HS PRN 08/22/20 08/22/20 History Allergies Allergy/AdvReac Type Severity Reaction Status Date / Time Iodinated Contrast Media Allergy Severe Anaphylaxis Verified 08/22/20 07:38 [Iodinated Contrast Media - IV Dye] latex Allergy Rash/Hives Verified 08/22/20 07:38 nickel Allergy Rash/Hives Verified 08/22/20 07:38 lisinopril AdvReac BP dropped Verified 08/22/20 07:38 and she passed out sumatriptan [From Imitrex] AdvReac "heart was Verified 08/22/20 07:38 pounding" MRI CONTRAST AdvReac Severe states no Uncoded 08/22/20 07:38 issue last time Physical Exam Vitals: Vital Signs Temp Pulse Resp BP Pulse Ox 08/22/20 07:21 80 18 124/72 98 08/22/20 05:09 98.1 F 76 20 117/83 98 Intake and Output 08/21/20 08/22/20 08/22/20 22:59 06:59 14:59 Other: Weight 88.451 kg Results 08/22/20 05:29 08/22/20 05:29 Cardiac Enzymes 08/22/20 08/22/20 08/22/20 Range/Units 05:29 05:29 07:14 AST 26 (14-36) U/L Troponin I <0.012 <0.012 (0.000-0.034) ng/mL Coagulation 08/22/20 Range/Units 05:29 PT 10.5 (9.0-12.0) sec APTT 23.1 (22.0-30.0) sec CBC 08/22/20 Range/Units 05:29 WBC 9.4 (3.8-10.6) k/uL RBC 4.90 (3.80-5.40) m/uL Hgb 15.5 (11.4-16.0) gm/dL Hct 44.0 (34.0-46.0) % Plt Count 428 (150-450) k/uL Comprehensive Metabolic Panel 08/22/20 Range/Units 05:29 Sodium 134 L (137-145) mmol/L Potassium 3.8 (3.5-5.1) mmol/L Chloride 94 L (98-107) mmol/L Carbon Dioxide 26 (22-30) mmol/L BUN 15 (7-17) mg/dL Creatinine 1.11 H (0.52-1.04) mg/dL Glucose 114 H (74-99) mg/dL Calcium 10.3 H (8.4-10.2) mg/dL AST 26 (14-36) U/L ALT 22 (4-34) U/L Alkaline Phosphatase 73 (38-126) U/L Total Protein 8.3 H (6.3-8.2) g/dL Albumin 4.9 (3.5-5.0) g/dL Current Medications Generic Name Dose Route Start Last Admin Trade Name Freq PRN Reason Stop Dose Admin Hydrocodone Bitart/Acetaminophen 1 each 08/22/20 07:00 08/22/20 07:54 Hydrocodone/Apap 10-325mg 1 Each Tab PO 1 each Q4H BILL Administration Aspirin 325 mg 08/23/20 09:00 Aspirin 325 Mg Tab PO DAILY BILL Cholecalciferol 125 mcg 08/22/20 21:00 Cholecalciferol 25 Mcg (1000 Iu) Tablet PO DAILY BILL Diazepam 5 mg 08/22/20 09:00 08/22/20 09:03 Diazepam 5 Mg Tab PO 5 mg BID BILL Administration Hydrochlorothiazide 25 mg 08/22/20 09:00 08/22/20 09:03 Hydrochlorothiazide 25 Mg Tab PO Not Given BID BILL Loratadine/Pseudoephedrine Sulfate 1 each 08/22/20 09:00 Loratadine-Pseudoeph 5-120 Mg 1 Each Tab.Er.12h PO DAILY [facility] Meclizine HCl 25 mg 08/22/20 09:00 08/22/20 09:03 Meclizine 25 Mg Tab PO 25 mg TID BILL Administration Nitroglycerin 0.4 mg 08/22/20 06:45 Nitroglycerin Sl Tabs 0.4 Mg Tab SUBLINGUAL Q5M PRN Chest Pain Non-Formulary Medication 400 mg 08/22/20 21:00 Progesterone, Micronized [Progesterone] PO HS BILL Ondansetron HCl 8 mg 08/22/20 06:46 Ondansetron 4 Mg Tab PO TID PRN Nausea Spironolactone 100 mg 08/22/20 09:00 Spironolactone 25 Mg Tab PO BID [facility] Zolpidem Tartrate 10 mg 08/22/20 21:00 Zolpidem 10 Mg Tab PO HS@2100 [facility] Intake and Output 08/21/20 08/22/20 08/22/20 22:59 06:59 14:59 Other: Weight 88.451 kg 08/22/20 05:29 08/22/20 05:29
[2020-08-22] MEDS: MAGNESIUM SULFATE-D5W PMX 1 GM in DEXTROSE/WATER 1 100ML.BAG IVPB SCH ×2 (10:49→11:20)
[2020-08-22] MEDS: SPIRONOLACTONE 25 MG TAB PO SCH ×2 (10:49→21:55)
[2020-08-22] MEDS: LORATADINE-PSEUDOEPH 5-120 MG 1 EACH TAB.ER.12H PO SCH (11:55)
--- NOTE | 2020-08-22 11:59 | ECHOF ---
Referral Reason:Chest pain MEASUREMENTS -------- HEIGHT: 160.0 cm WEIGHT: 88.5 kg BP: 124/72 RVIDd: 3.1 cm (< 3.3) IVSd: 1.1 cm (0.6 - 1.1) LVIDd: 4.4 cm (3.9 - 5.3) LVPWd: 1.1 cm (0.6 - 1.1) IVSs: 1.7 cm LVIDs: 3.0 cm LVPWs: 1.6 cm LA Diam: 3.6 cm (2.7 - 3.8) Ao Diam: 3.1 cm (2.0 - 3.7) AV Cusp: 2.2 cm (1.5 - 2.6) MV EXCURSION: 17.007 mm (> 18.000) MV EF SLOPE: 65 mm/s (70 - 150) EPSS: 0.3 cm MV E Nick: 0.90 m/s MV DecT: 246 ms MV A Nick: 0.80 m/s MV E/A Ratio: 1.12 FINDINGS -------- Sinus rhythm. This was a technically adequate study. The left ventricular size is normal. There is borderline concentric left ventricular hypertrophy. Overall left ventricular systolic function is normal with, an EF between 60 - 65 %. The right ventricle is normal in size. The left atrium is normal in size. The right atrium is normal in size. Interatrial and interventricular septum intact. The aortic valve is trileaflet and appears structurally normal. The mitral valve is normal. The tricuspid valve appears structurally normal. The pulmonic valve was not well visualized. The aortic root size is normal. Normal inferior vena cava with normal inspiratory collapse consistent with estimated right atrial pre ssure of 5 mmHg. There is no pericardial effusion. CONCLUSIONS -------- 1. The left ventricular size is normal. 2. There is borderline concentric left ventricular hypertrophy. 3. Overall left ventricular systolic function is normal with, an EF between 60 - 65 %. 4. There is no pericardial effusion. [employer]INTER [employer]: Lizz Monahan [facility]
--- NOTE | 2020-08-22 15:23 | P.HPIM ---
History of Present Illness 57-year-old female with history of chronic also coronary tests given compensative chest pain on the left side of the chest pressure-like sensation moderate severity started earlier today morning long-lasting improved with morphine radiating to the left arm which is tingling and numbness. Patient the felt impending doom was lightheaded, chest pain is not nonpleuritic not associated with food was comparing of lightheadedness as well as nausea. Patient blood pressure was low as per the patient when she checked. Blood pressure here is essentially within normal limits patient does take Diuretics and lisinopril at home which she didn't take today because of low blood pressure. Patient denied any history of coronary artery disease denied any smoking history had a stress test in which was within normal limits. EKG showed mild ST depression in V4, V5 and V6. Chest x-ray did not show any significant abnormality. Review of Systems REVIEW OF SYSTEMS: CONSTITUTIONAL: No fever, no malaise, no fatigue. HEENT: No recent visual problems or hearing problems. Denied any sore throat. CARDIOVASCULAR: No orthopnea, PND, no palpitations, no syncope. PULMONARY: no cough, no hemoptysis. GASTROINTESTINAL: No diarrhea, no nausea, no vomiting, no abdominal pain. NEUROLOGICAL: No headaches, no weakness, no numbness. HEMATOLOGICAL: Denies any bleeding or petechiae. GENITOURINARY: Denies any burning micturition, frequency, or urgency. MUSCULOSKELETAL/RHEUMATOLOGICAL: Denies any joint pain, swelling, or any muscle pain. ENDOCRINE: Denies any polyuria or polydipsia. The rest of the 14-point review of systems is negative. Past Medical History Past Medical History: Cancer, GERD/Reflux, Osteoarthritis (OA), Renal Disease, Vascular Disorder Additional Past Medical History / Comment(s): Vestibular neuritis/vertigo with frequent falls, multiple gastric ulcers/small hiatal hernia, ulcerative colitis, fall with rib fractures/cartlidge torn and has costochondritis, pt states feet/legs get bluish coloration at times, bilateral ankle edema, skin cancer with removals, hypoglycemia, bronchitis, sinus problems, recent HTN then found d/t sinus medication, polycystic ovaries, nephrolithiasis. History of Any Multi-Drug Resistant Organisms: None Reported Past Surgical History: Hysterectomy, Orthopedic Surgery, Tubal Ligation Additional Past Surgical History / Comment(s): Bilateral ureteral reconstruction as a child, D&Cs-multiple, R knee arthroscopy, R knee ACL repair, staple removed from R tibia d/t allergy, L middle finger glass removal/tendon repair, pain clinic procedures, lipoma removed sternal notch, rectocele, colonoscopy, skin cancer removals. Past Anesthesia/Blood Transfusion Reactions: Motion Sickness, Postoperative Nausea & Vomiting (PONV) Additional Past Anesthesia/Blood Transfusion Reaction / Comment(s): vertigo Smoking Status: Former smoker - Past Family History Father Family Medical History: Cancer, Deep Vein Thrombosis (DVT) Additional Family Medical History / Comment(s): skin cancer Sister(s) Family Medical History: Deep Vein Thrombosis (DVT) Mother Family Medical History: Hyperlipidemia, Rheumatoid Arthritis (RA) Additional Family Medical History / Comment(s): Mother had rheumatic fever/valve disease. Medications and Allergies Home Medications Medication Instructions Recorded Confirmed Type Diazepam [Valium] 5 mg PO BID 09/25/18 08/22/20 History Hydrocodone/Acetaminophen [[place] 1 tab PO Q4H 09/25/18 08/22/20 History 10-325] Meclizine [Antivert] 25 mg PO TID 09/25/18 08/22/20 History ondansetron HCL [Zofran] 8 mg PO TID PRN 09/25/18 08/22/20 History Progesterone, Micronized 400 mg PO HS 11/26/18 08/22/20 History [Progesterone] Spironolactone 100 mg PO BID 06/01/19 08/22/20 History Vitamin E (Dl,Tocopheryl Acet) 400 unit PO DAILY 06/01/19 08/22/20 History [Vitamin E] hydroCHLOROthiazide [Hydrodiuril] 25 mg PO BID 06/01/19 08/22/20 History Cholecalciferol (Vitamin D3) 125 mcg PO DAILY 08/22/20 08/22/20 History [Vitamin D3 (5000 Iu)] Loratadine-Pseudoeph 5-120 mg 1 tab PO DAILY 08/22/20 08/22/20 History [Claritin-D 12 Hour] Zolpidem [Ambien] 10 mg PO HS PRN 08/22/20 08/22/20 History Allergies Allergy/AdvReac Type Severity Reaction Status Date / Time Iodinated Contrast Media Allergy Severe Anaphylaxis Verified 08/22/20 07:38 [Iodinated Contrast Media - IV Dye] latex Allergy Rash/Hives Verified 08/22/20 07:38 nickel Allergy Rash/Hives Verified 08/22/20 07:38 lisinopril AdvReac BP dropped Verified 08/22/20 07:38 and she passed out sumatriptan [From Imitrex] AdvReac "heart was Verified 08/22/20 07:38 pounding" MRI CONTRAST AdvReac Severe states no Uncoded 08/22/20 07:38 issue last time Physical Exam Vitals: Vital Signs Temp Pulse Pulse Resp BP BP BP 08/22/20 15:00 97.6 F 71 16 130/83 08/22/20 12:40 98.2 F 70 20 123/77 08/22/20 11:49 73 16 114/66 08/22/20 10:40 70 16 120/64 08/22/20 09:57 70 16 135/78 08/22/20 07:21 80 18 124/72 08/22/20 05:09 98.1 F 76 20 117/83 Pulse Ox 08/22/20 15:00 97 08/22/20 12:40 97 08/22/20 11:49 08/22/20 10:40 95 08/22/20 09:57 95 08/22/20 07:21 98 08/22/20 05:09 98 Intake and Output 08/22/20 08/22/20 08/22/20 06:59 14:59 22:59 Intake Total 200 Balance 200 Intake: Intake, IV Titration 200 Amount Magnesium Sulfate-D5w Pmx 200 1 gm In Dextrose/Water 1 100ml.bag @ 100 mls/hr IVPB Q1H [facility] Rx#: [id number] Other: Voiding Method Toilet # Voids 1 Weight 88.451 kg 88.451 kg PHYSICAL EXAMINATION: GENERAL: The patient is alert and oriented x3, not in any acute distress. Well developed, well nourished. HEENT: Pupils are round and equally reacting to light. EOMI. No scleral icterus. No conjunctival pallor. Normocephalic, atraumatic. No pharyngeal erythema. No thyromegaly. CARDIOVASCULAR: S1 and S2 present. No murmurs, rubs, or gallops. Does have tenderness in the right side of the chest mid chest area from her coasto- chondritis. PULMONARY: Chest is clear to auscultation, no wheezing or crackles. ABDOMEN: Soft, nontender, nondistended, normoactive bowel sounds. No palpable organomegaly. MUSCULOSKELETAL: No joint swelling or deformity. EXTREMITIES: No cyanosis, clubbing, or pedal edema. NEUROLOGICAL: Gross neurological examination did not reveal any focal deficits. SKIN: No rashes. Results CBC & Chem 7: 08/22/20 05:29 08/22/20 05:29 Labs: Abnormal Lab Results - Last 24 Hours (Table) 08/22/20 08/22/20 Range/Units 05:29 07:02 Sodium 134 L (137-145) mmol/L Chloride 94 L (98-107) mmol/L Creatinine 1.11 H (0.52-1.04) mg/dL Glucose 114 H (74-99) mg/dL Calcium 10.3 H (8.4-10.2) mg/dL Magnesium 1.5 L (1.6-2.3) mg/dL Total Protein 8.3 H (6.3-8.2) g/dL Urine Appearance Cloudy H (Clear) Urine Protein Trace H (Negative) Urine WBC 9 H (0-5) /hpf Ur Squamous Epith Cells 17 H (0-4) /hpf Urine Bacteria Rare H (None) /hpf Urine Mucus Rare H (None) /hpf Thrombosis Risk Factor Assmnt - Choose All That Apply Any of the Below Risk Factors Present?: Yes Each Factor Represents 1 point: Age 41-60 years, Obesity (BMI >25) Other Risk Factors: Yes Each Risk Factor Represents 2 Points: Malignancy Other congenital or acquired thrombophilia - If yes, enter type in comment: No Thrombosis Risk Factor Assessment Total Risk Factor Score: 4 Thrombosis Risk Factor Assessment Level: Moderate Risk Assessment and Plan Plan: -Chest pain: Rule out a concurrent syndromes patient will need stress test patient chest pain has some typical features -Hypertension patient blood pressure is within normal notes now hold off on antidepressant medications -Mild acute renal failure secondary to diuretics which will be held -History of costochondritis -Hypomagnesemia magnesium will be replaced
[2020-08-22] MEDS ORDERED: ZOLPIDEM 10 MG TAB PO SCH (21:00)
[2020-08-22] MEDS ORDERED: MESALAMINE 1,000 MG SUPP RECTAL SCH (21:00)
[2020-08-22] MEDS ORDERED: NON FORMULARY DRUG (Progesterone, Micronized [Progesterone] 200 MG Capsule) PO SCH (21:00)
[2020-08-22] MEDS ORDERED: ZOLPIDEM 5 MG TAB PO SCH (21:45)
[2020-08-22] MEDS: CHOLECALCIFEROL 25 MCG (1000 IU) TABLET PO SCH (21:56)
[2020-08-22] MEDS: CALCIUM CARBONATE 500 MG CHEWABLE PO PRN (21:56)
[2020-08-23] MEDS ORDERED: diphenhydrAMINE 25 MG CAP PO PRN (00:01)
[2020-08-23] MEDS: HYDROcodone/APAP 10-325MG 1 EACH TAB PO SCH ×3 (03:29→11:14)
[2020-08-23] MEDS: CALCIUM CARBONATE 500 MG CHEWABLE PO PRN (03:53)
[2020-08-23 06:12] LABS: Cholesterol 286 mg/dL (<200); HDL Cholesterol 48 mg/dL (40-60); LDL Cholesterol,Calculated 208 mg/dL (0-99); Magnesium 1.9 mg/dL (1.6-2.3); Triglycerides 151 mg/dL (<150)
[2020-08-23] MEDS ORDERED: MESALAMINE 1,000 MG SUPP RECTAL PRN (06:45)
[2020-08-23 07:21] VITALS: BP 126/87; PULSE 82; RESP 20; TEMP 97.8
[2020-08-23] MEDS: diazePAM 5 MG TAB PO SCH (07:23)
[2020-08-23] MEDS ORDERED: ASPIRIN 325 MG TAB PO SCH (09:00)
[2020-08-23] MEDS: LORATADINE-PSEUDOEPH 5-120 MG 1 EACH TAB.ER.12H PO SCH (09:04)
[2020-08-23] MEDS ORDERED: METOPROLOL TARTRATE 5 MG/5 ML VIAL IVP ONE (11:00)
--- NOTE | 2020-08-23 11:10 | P.PN ---
Subjective Progress Note Date: 08/23/20 CHIEF COMPLAINT: Chest pain HISTORY OF PRESENT ILLNESS: 08/22/2020 This is a 49-year-old female with a past medical history significant for GERD, osteoarthritis, hypoglycemia, migraines, and costochondritis. 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 We have been asked to see the patient in consultation for chest pain. Patient examined this morning in the emergency room. Patient states that she has not had a history of hypertension in the past. However she was taking Claritin which increased her blood pressure over the last few months. She states she was started on lisinopril by her primary care physician because of this. She states that she switched her allergy medication recently but continued taking the lisinopril and has noticed her pressure has been running on the low side. She reports waking up at 0300 with severe chest pain. She reports feeling short of breath and states it was hard to take a deep breath due to the pain. She denied any nausea or vomiting. She reports that the pain was worse with deep inspiration but states she has a history of costochondritis so she is not sure if it is related to that. She states that she took her blood pressure at home and it was 60/40. Blood pressure documented in the emergency room was 117/83 with heart rate in the 70s. She states she has not taken her lisinopril and a few days but is unsure of the exact day in which she last took it. She also reports left arm numbness which she did not realize she had until she came to the emergency room and had a tourniquet around her left arm to start an IV and she was unable to feel it. She states most of the feeling in her left arm has returned but she does have some numbness in her fingers. Patient denies a history of nicotine dependence or alcohol use. She states she had a stress test in the which was normal to her recollection. 08/23/2020 Patient examined this morning. Denies shortness of breath. Patient reports her ulcerative colitis is acting up and she has been having diarrhea today. Echocardiogram completed revealing ejection fraction 60-65%. LDL 208. Blood pressure 126/87. Heart rate in the 80s. PHYSICAL EXAM: VITAL SIGNS: Reviewed. GENERAL: Well-developed in no acute distress. HEENT: Head is normocephalic. Pupils are equal, round. Sclerae anicteric. Mucous membranes of the mouth are moist. Neck supple. No JVD or thyromegaly LUNGS: Respirations even and unlabored. Lungs essentially clear to auscultation bilaterally. HEART: Regular rate and rhythm. S1 and S2 heard. EXTREMITIES: Normal range of motion. No clubbing or cyanosis. Peripheral pulses intact. No lower extremity edema ASSESSMENT: Chest pain, troponins negative 3 Left arm numbness Hypotension per patient, normotensive on arrival to ER History of osteochondritis History of lower extremity edema Hypomagnesemia Hyperlipidemia PLAN: Patient reports taking statin therapy in the past but had to discontinue it secondary to myalgias. She is willing to try taking it again. Will start on low dose statin 20mg daily and increase outpatient as tolerated Patient to undergo Dobutamine stress test. Await results Nurse practitioner note has been reviewed by physician. Signing provider agrees with the documented findings, assessment, and plan of care. Objective - Vital Signs Vital signs: Vital Signs Temp 97.8 F 08/23/20 07:00 Pulse 82 08/23/20 07:00 Resp 20 08/23/20 07:00 BP 126/87 08/23/20 07:00 Pulse Ox 96 08/23/20 07:00 Intake & Output 08/22/20 08/23/20 08/23/20 18:59 06:59 18:59 Intake Total 450 540 Balance 450 540 Weight 88.451 kg Intake: Intake, IV Titration 200 Amount Magnesium Sulfate-D5w Pmx 200 1 gm In Dextrose/Water 1 100ml.bag @ 100 mls/hr IVPB Q1H BILL Rx#: [id number] Oral 250 540 Other: Voiding Method Toilet # Voids 1 3 # Bowel Movements 2 - Labs CBC & Chem 7: 08/22/20 05:29 08/22/20 05:29 Labs: Abnormal Lab Results - Last 24 Hours (Table) 08/23/20 Range/Units 05:29 Triglycerides 151 H (<150) mg/dL Cholesterol 286 H (<200) mg/dL LDL Cholesterol, Calc 208 H (0-99) mg/dL
[2020-08-23] MEDS: CHOLECALCIFEROL 25 MCG (1000 IU) TABLET PO SCH (11:15)
[2020-08-23] MEDS: MECLIZINE 25 MG TAB PO SCH (11:15)
[2020-08-23] MEDS: SPIRONOLACTONE 25 MG TAB PO SCH (11:20)
--- NOTE | 2020-08-23 15:51 | P.DS ---
Providers Date of admission: 08/22/20 06:45 Expected date of discharge: 08/23/20 Attending physician: Bisi Arthur Consults: 08/22/20 06:45 Consult Physician Routine Consulting Provider: Shivam Gutierrez Consult Reason/Comments: chest pain Do you want consulting provider notified?: Yes Primary care physician: Josafat Barraza Hospital Course: Final diagnosis -Chest pain: Ruled out acute coronary syndromes -Hypertension -Hyperlipidemia -Mild acute renal failure secondary to diuretics -History of costochondritis -History of vestibular neuritis -History of ulcerative colitis -Hypomagnesemia, improved Discharge disposition Patient is being discharged in a stable condition with guarded prognosis to home. Patient will follow-up with Dr. Barraza in the outpatient setting upon discharge. Patient also instructed to follow-up with cardiology outpatient. Total time taken is greater than 35 minutes. Hospital course 57-year-old female with history of chronic also coronary tests given compensative chest pain on the left side of the chest pressure-like sensation moderate severity started earlier today morning long-lasting improved with morphine radiating to the left arm which is tingling and numbness. Patient the felt impending doom was lightheaded, chest pain is not nonpleuritic not associated with food was comparing of lightheadedness as well as nausea. Sriram griffith blood pressure was low as per the patient when she checked. Blood pressure here is essentially within normal limits patient does take Diuretics and lisinopril at home which she didn't take today because of low blood pressure. Patient denied any history of coronary artery disease denied any smoking history had a stress test in which was within normal limits. EKG showed mild ST depression in V4, V5 and V6. Chest x-ray did not show any significant abnormality. 08/23/2020 Patient was seen this morning and underwent dobutamine stress test which was negative and patient will be following up with cardiology outpatient. Patient continues to have her chronic osteochondritis chest wall pain and continues to be anxious on exam. Patient instructed to follow-up with primary care provider in the outpatient setting. Currently no reports of chest pain, shortness of breath, or palpitations. Patient is afebrile. No reports of nausea or vomiting and patient is tolerating diet. Patient will be discharged home today. Lisinopril discontinued and instructed the patient to follow-up with primary care provider and keep a diary of blood pressure readings for follow-up. Patient will also resume cholesterol medications. On exam vital signs are stable. Cardio S1, S2 are muffled. Respiratory system shows diminished breath sounds at the bases with no wheezing or rhonchi noted. Abdomen is soft and nontender. Nervous system shows no focal deficits. Please refer to medication reconciliation sheet for a list of medications. Patient Condition at Discharge: Fair Plan - Discharge Summary Discharge Rx Participant: No New Discharge Prescriptions: New Atorvastatin [Lipitor] 20 mg PO HS 30 Days #30 tab Continue ondansetron HCL [Zofran] 8 mg PO TID PRN PRN Reason: Nausea Meclizine [Antivert] 25 mg PO TID Hydrocodone/Acetaminophen [[place] 10-325] 1 tab PO Q4H Diazepam [Valium] 5 mg PO BID Progesterone, Micronized [Progesterone] 400 mg PO HS Spironolactone 100 mg PO BID Vitamin E (Dl,Tocopheryl Acet) [Vitamin E] 400 unit PO DAILY Cholecalciferol (Vitamin D3) [Vitamin D3 (5000 Iu)] 125 mcg PO DAILY Loratadine-Pseudoeph 5-120 mg [Claritin-D 12 Hour] 1 tab PO DAILY Zolpidem [Ambien] 10 mg PO HS PRN PRN Reason: Insomnia Discontinued hydroCHLOROthiazide [Hydrodiuril] 25 mg PO BID Discharge Medication List Diazepam [Valium] 5 mg PO BID 09/25/18 [History] Hydrocodone/Acetaminophen [[place] 10-325] 1 tab PO Q4H 09/25/18 [History] Meclizine [Antivert] 25 mg PO TID 09/25/18 [History] ondansetron HCL [Zofran] 8 mg PO TID PRN 09/25/18 [History] Progesterone, Micronized [Progesterone] 400 mg PO HS 11/26/18 [History] Spironolactone 100 mg PO BID 06/01/19 [History] Vitamin E (Dl,Tocopheryl Acet) [Vitamin E] 400 unit PO DAILY 06/01/19 [History] Cholecalciferol (Vitamin D3) [Vitamin D3 (5000 Iu)] 125 mcg PO DAILY 08/22/20 [History] Loratadine-Pseudoeph 5-120 mg [Claritin-D 12 Hour] 1 tab PO DAILY 02/23/21 [History] Zolpidem [Ambien] 10 mg PO HS PRN 08/22/20 [History] Atorvastatin [Lipitor] 20 mg PO HS 30 Days #30 tab 08/23/20 [Rx] Follow up Appointment(s)/Referral(s): Josafat Barraza DO [Primary Care Provider] - 08/25/20 11:20 am ([place] Patient to call office today) Claus Morton MD [STAFF PHYSICIAN] - 1 Week (Cardiology office to call with appointment time) Patient Instructions/Handouts: Chest Pain (DC), Heart Healthy Diet (DC), Noncardiac Chest Pain (DC) Activity/Diet/Wound Care/Special Instructions: Activity Limited until follow-up Follow up with primary care provider Follow-up cardiology outpatient Continue with statin Hold hydrochlorothiazide Discharge Disposition: HOME SELF-CARE
--- NOTE | 2020-08-23 16:36 | ECHOS ---
STRESS ECHOCARDIOGRAM LUMASON: N/A Vial INDICATIONS: Chest pain MEDICATIONS: BASELINE HEART RATE: 78 BASELINE BLOOD PRESSURE: 129/88 MAXIMUM HEART RATE: 145 MAXIMUM BLOOD PRESSURE: 159/116 85% MPHR: 144 100% MPHR: 169 METS: N/A MAXIMUM STAGE REACHED: 30 mcg TOTAL EXERCISE TIME: 8:32 CLINICAL INFORMATION: Baseline EKG shows sinus rhythm, normal axis, normal intervals. Patient was given intravenous dobutamine over a period of 8-1/2 minutes as per protocol. Did not have chest pain or diagnostic ST-segment depression. Baseline echo shows normal left ventricular size, wall motion and systolic function. Post dobutamine infusion, there is normal hyperdynamic response of all segments of myocardium noted. CONCLUSIONS: 1. Negative stress test by EKG criteria. 2. Negative dobutamine echo. MMODL / IJN: [id number] /
[2020-08-23] MEDS ORDERED: ATORVASTATIN 20 MG TAB PO SCH (21:00)
[2020-08-23] MEDS ORDERED: ATORVASTATIN 40 MG TAB PO SCH (21:00)
== END 2020-08-23 14:12 | disposition home or self-care (01) ==
LOC: EC 05:05 → 6NMEDSUR 06:45 → 2ORMAIN 09:37 → 6NMEDSUR 12:10
PROVIDERS: ADMIT Internal Medicine; ATTEND Internal Medicine
DX: R07.89 Other chest pain (principal); E78.5 Hyperlipidemia, unspecified; E83.42 Hypomagnesemia; I10 Essential (primary) hypertension; K51.90 Ulcerative colitis, unspecified, without complications; N17.9 Acute kidney failure, unspecified; T50.2X5A Adverse effect of carbonic-anhydrase inhibitors, benzothiadiazides and other diuretics, initial encounter; Z79.899 Other long term (current) drug therapy; Z80.8 Family history of malignant neoplasm of other organs or systems; Z82.49 Family history of ischemic heart disease and other diseases of the circulatory system; Z85.828 Personal history of other malignant neoplasm of skin; Z87.11 Personal history of peptic ulcer disease; Z87.442 Personal history of urinary calculi; Z87.891 Personal history of nicotine dependence; Z90.710 Acquired absence of both cervix and uterus; Z91.128 Patient's intentional underdosing of medication regimen for other reason
CPT/HCPCS: 96365; 93005 ×2; 96376; 96375; 99285; 36415; 93306; 93351; 85379; 80061; 80053; 82150; 83690; 83735 ×2; 84484; 85025; 85610; 85730; 81001; 71046; G0378 ×3; J1250; J2270; J2405; J3475

== ENCOUNTER → 2022-03-18 | Outpatient (CLI) | payer BC, MEDICARE ==
--- NOTE | 2022-03-19 03:41 | MR ---
EXAMINATION TYPE: MR shoulder LT wo con DATE OF EXAM: 03/18/2022 COMPARISON: None HISTORY: Left shoulder pain and limited range of motion due to falling injury. Multiplanar multiecho imaging of the left shoulder with no contrast. The biceps tendon is intact. Subscapularis tendon is intact. The glenoid [place] appear normal. The AC joint is intact. There is mild spurring on the inferior surface of the AC joint and impinging on the supraspinatus tendon and muscle. The supraspinatus tendon is intact. No retraction. No evidenc e of any significant shoulder joint effusion. The infraspinatus tendon is intact. No evidence of a fr acture. No focal bone destruction. The scapula is intact. IMPRESSION: No evidence of rotator cuff tear. There is some spurring at the AC joint and impingement on the supra spinatus tendon and muscle.
== END | disposition home or self-care (01) ==
LOC: RADMRIMAIN 20:40
PROVIDERS: ATTEND Nurse Practitioner Family
DX: M77.8 Other enthesopathies, not elsewhere classified (principal); M75.42 Impingement syndrome of left shoulder

== ENCOUNTER → 2022-06-19 | Outpatient (CLI) | payer BC ==
--- NOTE | 2022-06-19 16:09 | MR ---
EXAMINATION TYPE: MR angio head wo/w con DATE OF EXAM: 06/19/2022 COMPARISON: Outside institution MRA brain 06/08/2021. HISTORY: Cerebral aneurysms. TECHNIQUE: Time of flight images focusing on the [place] of [place] were performed without contrast and with 9 mL intravenous Gadavist gadolinium contrast. FINDINGS: The distal internal carotid arteries are normal in course and caliber. Unchanged 3 mm saccular aneury sm arising from the right M1 segment directed inferiorly. Unchanged 3 mm infundibulum arising from th e left spine 1 segment and directed superiorly. The anterior cerebral arteries are normal in course a nd caliber. The distal vertebral, basilar, posterior cerebral arteries are normal in course and calib er. No evidence of significant stenosis. IMPRESSION: 1. 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 2. Unchanged 3 mm infundibulum arising from the left middle cerebral artery.
== END | disposition home or self-care (01) ==
LOC: RADMRIMAIN 14:15
PROVIDERS: ATTEND Nurse Practitioner Family
DX: I67.1 Cerebral aneurysm, nonruptured (principal)
CPT/HCPCS: 70546; A9585

== ENCOUNTER → 2022-12-06 | Outpatient (CLI) | payer BC ==
--- NOTE | 2022-12-08 22:10 | MR ---
EXAMINATION TYPE: MR knee LT wo con DATE OF EXAM: 12/06/2022 COMPARISON: Radiograph 11/22/2022 HISTORY: 52-year-old female M25.562, Left knee pain and swelling TECHNIQUE: Multiplanar, multisequence imaging of the left knee is performed without IV contrast. FINDINGS: ACL, PCL, and MCL are intact. There is some intrinsic signal within the popliteus tendon and some fluid dissecting along the myoten dinous junction. Otherwise, LCL complex is intact. There is some focal edema involving the peroneus longus muscle adjacent to the anterior margin of the fibula. There is an oblique tear at the junction of the posterior horn and body of the medial meniscus. Overa ll medial compartment articular cartilage is maintained. The lateral meniscus and lateral compartment articular cartilage is maintained. Patellofemoral compartment articular cartilage is maintained. Small joint effusion and tiny 3.0 x 0.8 cm Bucio's cyst. Extensor mechanism is intact. Normal popliteal artery anatomy and muscle bulk. No suspicious bone marrow replacement. IMPRESSION: 1. Oblique tear at the junction of the posterior horn and body of the medial meniscus. 2. Some focal tendinosis or interstitial tear of the popliteus tendon. Some fluid dissects along the popliteus myotendinous junction. 3. Focal edema involving the visualized peroneus longus muscle adjacent to the anterior margin of the proximal fibula. Soft tissue contusion and muscle strain are considerations. 4. Tiny Bucio's cyst.
== END | disposition home or self-care (01) ==
LOC: RADMRIMAIN 16:12
PROVIDERS: ATTEND Orthopaedic Surgery
DX: S83.242A Other tear of medial meniscus, current injury, left knee, initial encounter (principal); S80.02XA Contusion of left knee, initial encounter; M71.22 Synovial cyst of popliteal space [Baker], left knee; X58.XXXA Exposure to other specified factors, initial encounter

== ENCOUNTER → 2022-12-24 | Outpatient (CLI) | payer BC ==
[2022-12-24 15:56] LABS: Anion Gap 12.4 mmol/L (4.00-12.00); Carbon Dioxide 27.6 mmol/L (21.6-31.8); Potassium 4.3 mmol/L (3.5-5.5)
[2022-12-24 15:58] LABS: Basophils # (A) 0.08 X 10*3/uL (0.00-0.10); Basophils % (A) 0.7 %; Eosinophils % (A) 2.7 %; HCT 46.1 % (37.2-46.3); HGB 15.3 d/dL (12.0-15.0); Lymphocytes # (A) 2.59 X 10*3/uL (0.90-5.00); Lymphocytes % (A) 23.1 %; MCH 30.4 pg (27.0-32.0); MCHC 33.2 d/dL (32.0-37.0); MCV 91.7 FL (80.0-97.0); Mean Platelet Volume 10.2 FL (9.5-12.2); Monocytes # (A) 0.68 X 10*3/uL (0.20-1.00); Monocytes % (A) 6.1 %; NRBC Per 100 WBC 0 X 10*3/uL (0.00-0.01); Neutrophils # (A) 7.49 X 10*3/uL (1.80-7.70); Platelet Count 428 X 10*3/uL (140-440); RBC 5.03 X 10*6/uL (4.10-5.20); RDW 14.2 % (11.5-14.5); WBC 11.19 X 10*3/uL (4.50-10.00)
== END | disposition home or self-care (01) ==
LOC: LABPAT 08:55
PROVIDERS: ATTEND Orthopaedic Surgery
DX: Z01.812 Encounter for preprocedural laboratory examination (principal); M23.92 Unspecified internal derangement of left knee; R94.31 Abnormal electrocardiogram [ECG] [EKG]
CPT/HCPCS: 36415; 80051; 85025; 93005

== ENCOUNTER → 2023-01-01 | Outpatient (CLI) | payer BC ==
--- NOTE | 2023-01-11 20:55 | MR ---
EXAMINATION TYPE: MR knee RT wo con DATE OF EXAM: 01/01/2023 COMPARISON: Outside radiograph 11/22/2022 HISTORY: 52-year-old female with right knee pain and anterior tearing sensation TECHNIQUE: Multiplanar, multisequence imaging of the right knee is performed without IV contrast. FINDINGS: Postsurgical changes of ACL graft reconstruction. The midportion of the graft is markedly thin and di minutive, sagittal series 401 image 18. However, some fibers remain visualized. PCL, MCL, and LCL complex are intact. Oblique undersurface tear at the junction of the posterior horn and body of the medial meniscus. Mild diffuse thinning of medial compartment articular cartilage volume. The lateral meniscus is intact. In the lateral compartment, there is a moderate thickness focal carti janelle defect measuring 5 x 6 mm along the mid weightbearing aspect of the lateral femoral condyle. Mil d diffuse thinning of lateral compartment articular cartilage volume. Patellofemoral compartment articular cartilage is maintained. Extensor mechanism is intact. Nonspecific mild anterior soft tissue swelling. There is a small knee j oint effusion. No Bucio cyst. Normal popliteal artery anatomy and muscle bundle. No suspicious bone marrow replacement. IMPRESSION: 1. Post surgical change of ACL graft reconstruction. The midportion of the graft, sagittal series 401 image 18, is diminutive suggesting a partial tear. 2. Oblique undersurface tear at the junction of the posterior horn and body of the medial meniscus. 3. Within the lateral compartment, there is a moderate thickness focal cartilage defect measuring 5 x 6 mm involving the mid weightbearing aspect of the lateral femoral condyle. 4. Small knee joint effusion.
== END | disposition home or self-care (01) ==
LOC: RADMRIMAIN 05:44
PROVIDERS: ATTEND Orthopaedic Surgery
DX: S83.241A Other tear of medial meniscus, current injury, right knee, initial encounter (principal); M25.461 Effusion, right knee

== ENCOUNTER 2023-01-09 10:02 | Day surgery (SDC) | payer BC ==
[2023-01-03 08:58] VITALS: BMI 34.3
--- NOTE | 2023-01-09 07:32 | HP ---
HISTORY AND PHYSICAL DATE OF SURGERY: 01/09/2023. HISTORY OF PRESENT ILLNESS: Marge Giles is a 52-year-old patient, seen with progressive left knee pain. We discussed options for treatment. She elected to proceed with left knee arthroscopy. Consent was obtained. PAST MEDICAL HISTORY: Hypertension. PAST SURGICAL HISTORY: Hysterectomy and knee arthroscopy. DAILY MEDICATIONS: 1. Hydrochlorothiazide. 2. Multivitamin. 3. Spironolactone. ALLERGIES: None. SOCIAL HISTORY: She denies tobacco use. PHYSICAL EVALUATION OF THE LEFT KNEE: Range of motion is -2/3 to 110 degrees. Tenderness along the medial and lateral joint lines. Positive medial Shaniqua's. Positive lateral Shaniqua's. Ligaments are stable. Hip rotation is without pain. Distal neurovascular exam is intact. IMAGING STUDIES: Left knee radiographs revealed mild osteoarthritis. MRI left knee revealed medial meniscal tear. IMPRESSION: 1. Internal derangement of left knee with medial meniscal tear. 2. History of adhesive allergy. 3. Hypertension. PLAN: Left knee arthroscopy with partial medial meniscectomy and debridement. MMODL / IJN: [id number] /
[~2023-01-09 10:02] MED LIST changes: -BUPIVACAINE (PF) 0.5% 30 ML VIAL ONE; +DEXAMETHASONE SOD PHOSPHATE 4 MG/ML 1 ML VIAL IV ONE; +LACTATED RINGERS 1,000 ML IV SCH; -MIDAZOLAM 2 MG/2 ML VIAL ONE; +ONDANSETRON 4 MG/2 ML VIAL IVP ONE; -SODIUM CHLORIDE 0.9% (PF) 10 ML VIAL ONE; -TRIAMCINOLONE ACETONIDE 40 MG/ML 1 ML VIAL ONE; +fentaNYL (PF) 50 MCG/ML 2 ML AMP IV PRN; -fentaNYL (PF) 50 MCG/ML 2 ML AMP ONE
[2023-01-09] MEDS ORDERED: MIDAZOLAM 2 MG/2 ML VIAL IVP ONE (11:05)
[2023-01-09] MEDS ORDERED: PROPOFOL 10 MG/ML 20 ML VIAL IV ONE (12:33)
[2023-01-09] MEDS ORDERED: MIDAZOLAM 2 MG/2 ML VIAL ONE (12:33)
[2023-01-09] MEDS ORDERED: LIDOCAINE 2% INJ 20 MG/ML (2 ML VIAL) ONE (12:33)
[2023-01-09] MEDS ORDERED: fentaNYL (PF) 50 MCG/ML 2 ML AMP ONE (12:33)
[2023-01-09] MEDS ORDERED: BUPIVACAINE (PF) 0.25% 30 ML VIAL SQ ONE ×2 (12:43→13:11)
--- NOTE | 2023-01-09 13:24 | P.OP ---
Date of Procedure: 01/09/23 Preoperative Diagnosis: Internal derangement left knee Postoperative Diagnosis: 1. Tear medial and lateral meniscus left knee 2. Reactive synovitis medial, lateral and suprapatellar compartments left knee Procedure(s) Performed: 1. Arthroscopic partial medial and lateral meniscectomy left knee 2. Arthroscopic partial synovectomy medial, lateral and suprapatellar compartments left knee Anesthesia: MARILINA, local Surgeon: Gonzalez Perla Estimated Blood Loss (ml): 7 Pathology: none sent Condition: stable Disposition: PACU Indications for Procedure: 52-year-old patient seen with progressive left knee pain. After treatment options were discussed, she elected to proceed with arthroscopy. Operative Findings: See description of procedure Description of Procedure: Patient was taken to the operative suite. Patient underwent a general anesthetic by the department of anesthesia. Patient was given preoperative antibiotics. The left lower extremity was placed in a well-padded arthroscopic leg reed. The left leg was prepped and draped in the normal sterile orthopedic fashion. A lateral parapatellar and suprapatellar incision was made. Trochars were inserted. Arthroscopy was initiated. Suprapatellar pouch reve aled diffuse thick reactive synovitis. The patellofemoral joint appeared to articulate congruently. There was mild grade 1 chondromalacia without tears. The scope was guided into the medial gutter. No loose bodies or plica were identified. The scope was then guided into the medial compartment. A medial parapatellar incision was made. Trocar inserted followed by probe. There was a radial tear posterior horn medial meniscus. There was mild grade 1 chondral malacia of the femoral condyle. There was some thick reactive synovitis anteriorly. I performed a partial medial meniscectomy getting down to stable meniscal tissue. I performed a partial synovectomy decompressing the reactive synovitis. The residual meniscus was probed and was found to be stable. There was good decompression of the synovitis. Scope and probe were then guided into the intercondylar notch. Cruciates were identified, probed and found to be stable. The scope and probe were then guided into lateral compartment. There was a radial tear mid body lateral meniscus. There was some thick reactive some-itis anteriorly. There was no smoking chondromalacia present. I performed a partial lateral meniscectomy getting down to stable meniscal tissue. I performed a partial synovectomy decompressing the reactive synovitis. The residual meniscus was stable. There was good decompression of the synovitis. The scope was in guided back into the suprapatellar compartment. I introduced a motorized shaver into the suprapatellar compartment. I performed a partial synovectomy. The shaver was now removed. I now took one more look around the entire knee, no residual debris. Instruments were now removed from the joint. The joint was infiltrated with .25% Marcaine. Steri-Strips were applied to the portal sites. Sterile dressings were applied. The patient was placed into a MEKA hose. No tourniquet was utilized. The patient was awakened, transferred to a bed and taken to recovery stable satisfactory condition.
[2023-01-09 13:28] VITALS: TEMP 97
[2023-01-09] MEDS ORDERED: HYDROmorphone 0.5 MG/0.5 ML SYRINGE IVP ONE (13:44)
[2023-01-09] MEDS ORDERED: LACTATED RINGERS 1,000 ML IV ONE (14:07)
[2023-01-09 14:23] VITALS: RESP 18
[2023-01-09] MEDS ORDERED: ONDANSETRON 4 MG/2 ML VIAL ONE (14:30)
[2023-01-09] MEDS ORDERED: HYDROcodone/APAP 10-325MG 1 EACH TAB ONE (14:30)
[2023-01-09 14:55] VITALS: BP 148/83; PULSE 86
== END 2023-01-09 15:12 | disposition home or self-care (01) ==
LOC: OR 10:02
PROVIDERS: ATTEND Orthopaedic Surgery
DX: S83.242A Other tear of medial meniscus, current injury, left knee, initial encounter (principal); S83.282A Other tear of lateral meniscus, current injury, left knee, initial encounter; M94.262 Chondromalacia, left knee; M65.862 Other synovitis and tenosynovitis, left lower leg; M17.12 Unilateral primary osteoarthritis, left knee; I10 Essential (primary) hypertension; E78.5 Hyperlipidemia, unspecified; Z79.899 Other long term (current) drug therapy; Z91.048 Other nonmedicinal substance allergy status; Z98.890 Other specified postprocedural states; Z88.6 Allergy status to analgesic agent; Z88.8 Allergy status to other drugs, medicaments and biological substances; X58.XXXA Exposure to other specified factors, initial encounter
CPT/HCPCS: 29880; J2250; J1100; J0690; J2405; J3010; J2704; J1170; J2001

== ENCOUNTER → 2023-02-25 | Outpatient (CLI) | payer BC ==
[2023-02-25 20:41] LABS: Anion Gap 12.3 mmol/L (4.00-12.00); Carbon Dioxide 26.7 mmol/L (21.6-31.8)
[2023-02-25 21:27] LABS: Basophils # (A) 0.09 X 10*3/uL (0.00-0.10); Basophils % (A) 0.8 %; Eosinophils # (A) 0.29 X 10*3/uL (0.04-0.35); Eosinophils % (A) 2.6 %; HCT 42.7 % (37.2-46.3); HGB 14.7 d/dL (12.0-15.0); Lymphocytes # (A) 2.59 X 10*3/uL (0.90-5.00); Lymphocytes % (A) 23.1 %; MCH 30.1 pg (27.0-32.0); MCHC 34.4 d/dL (32.0-37.0); MCV 87.5 FL (80.0-97.0); Mean Platelet Volume 10.4 FL (9.5-12.2); Monocytes # (A) 1.09 X 10*3/uL (0.20-1.00); Monocytes % (A) 9.7 %; NRBC Per 100 WBC 0 X 10*3/uL (0.00-0.01); Neutrophils # (A) 7.12 X 10*3/uL (1.80-7.70); Neutrophils % (A) 63.4 %; Platelet Count 379 X 10*3/uL (140-440); RBC 4.88 X 10*6/uL (4.10-5.20); RDW 13.7 % (11.5-14.5); WBC 11.22 X 10*3/uL (4.50-10.00)
== END | disposition home or self-care (01) ==
LOC: LABPAT 13:24
PROVIDERS: ATTEND Orthopaedic Surgery
DX: Z01.812 Encounter for preprocedural laboratory examination (principal); M23.91 Unspecified internal derangement of right knee
CPT/HCPCS: 80051; 85025

== ENCOUNTER 2023-03-12 09:38 | Day surgery (SDC) | payer BC ==
[2023-03-10 16:00] VITALS: BMI 35.7
[~2023-03-12 09:38] MED LIST changes: +HYDROmorphone 0.5 MG/0.5 ML SYRINGE IVP PRN; +LIDOCAINE 1% (10MG/ML) FOR IV START INTRADERMA PRN; +droPERidol 5 MG/2 ML VIAL IVP ONE; -fentaNYL (PF) 50 MCG/ML 2 ML AMP IV PRN
[2023-03-12] MEDS ORDERED: LACTATED RINGERS 1,000 ML IV ONE ×2 (09:50→12:25)
[2023-03-12 10:20] LABS: Glucose,Whole Blood 123 mg/dL (70-110)
[2023-03-12] MEDS ORDERED: PROPOFOL 10 MG/ML 20 ML VIAL IV ONE (11:21)
[2023-03-12] MEDS ORDERED: HYDROmorphone (PF) 1 MG/ML ONE (11:21)
[2023-03-12] MEDS ORDERED: MIDAZOLAM 2 MG/2 ML VIAL ONE (11:21)
[2023-03-12] MEDS ORDERED: LIDOCAINE 2% INJ 20 MG/ML (2 ML VIAL) ONE (11:21)
[2023-03-12] MEDS ORDERED: fentaNYL (PF) 50 MCG/ML 2 ML AMP ONE (11:21)
--- NOTE | 2023-03-12 11:26 | P.HPOR ---
History of Present Illness H&P Date: 03/12/23 Chief Complaint: Right knee pain 52-year-old patient seen with progressive right knee pain. After treatment options were discussed, she elected to proceed with arthroscopy. Past Medical History Past Medical History: Cancer, GERD/Reflux, Osteoarthritis (OA), Vascular Disorder Additional Past Medical History / Comment(s): ulcerative colitis, migraines, polycystic ovaries, gets edema in ankles, sm hiatal hernia, degenerative disc disease, herniated discs cervical & lumbar., hx stomach ulcers., 3 fx ribs- broken cartiladge from fall., hx of htn after fall-since resolved, hypoglycemia- eats high protein and frequent meals., hx kidney stones, hx skin cancer, daily vertigo with hx of falls., brain aneurysm (dr [place]ville). 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 Smoking Status: Never smoker Past Alcohol Use History: None Reported Additional Past Alcohol Use History / Comment(s): smoked 1-2 yrs as teen Past Drug Use History: None Reported - Past Family History Father Family Medical History: Cancer, Deep Vein Thrombosis (DVT) Additional Family Medical History / Comment(s): Skin cancer. Sister(s) Family Medical History: Deep Vein Thrombosis (DVT) Mother Family Medical History: Hyperlipidemia, Rheumatoid Arthritis (RA) Additional Family Medical History / Comment(s): Mother had rheumatic fever/valve disease. Medications and Allergies Home Medications Medication Instructions Recorded Confirmed Type Hydrocodone/Acetaminophen [Hollister 1 tab PO QID 09/25/18 03/12/23 History 10-325] Spironolactone 100 mg PO BID 06/01/19 03/12/23 History hydroCHLOROthiazide 50 mg PO BID 08/13/22 03/12/23 History tiZANidine [Zanaflex] 4 mg PO TID PRN 08/13/22 03/12/23 History Melatonin [Melatonin ER] 10 mg PO HS 01/03/23 03/12/23 History Simvastatin [Zocor] 20 mg PO HS 01/03/23 03/12/23 History Allergies Allergy/AdvReac Type Severity Reaction Status Date / Time Iodinated Contrast Media Allergy Severe Anaphylaxis Verified 03/10/23 15:53 [Iodinated Contrast Media - IV Dye] latex Allergy Rash/Hives Verified 03/10/23 15:53 nickel Allergy Rash/Hives Verified 03/10/23 15:53 pregabalin [From Lyrica] Allergy Swelling Verified 03/10/23 15:53 NSAIDS (Non-Steroidal AdvReac Unknown no Verified 03/10/23 15:53 Anti-Inflamma nsaids/aspirin due to ulcerative colitis. sumatriptan [From Imitrex] AdvReac "heart was Verified 03/10/23 15:53 pounding" steri-strips Allergy Unknown rash, Uncoded 03/10/23 15:53 swelling, red skin Physical Examination Osteopathic Statement: *. No significant issues noted on an osteopathic structural exam other than those noted in the History and Physical/Consult. Right knee Range of motion 0 - 130. Tenderness along the Medial Joint Line. Positive Medial Shaniqua's. +1/2 Reji with Soft Endpoint. Collateral Ligaments Are Stable. Painless Rotation of the Hip. Distal Neurovascular Exam Is Intact. Results - Labs Labs: Abnormal Lab Results - Last 24 Hours (Table) 03/12/23 Range/Units 10:18 POC Glucose (mg/dL) 123 H (70-110) mg/dL - Diagnostic results Knee MRI: report reviewed (Tear medial meniscus, ACL graft tear) Assessment and Plan Assessment: Internal derangement right knee with medial meniscal tear and ACL graft tear Plan: Arthroscopy right knee with partial medial meniscectomy and debridement
[2023-03-12] MEDS ORDERED: BUPIVACAINE (PF) 0.5% 30 ML VIAL SQ ONE (11:48)
--- NOTE | 2023-03-12 12:10 | P.OP ---
Date of Procedure: 03/12/23 Preoperative Diagnosis: Internal derangement right knee Postoperative Diagnosis: 1. Tear medial and lateral meniscus right knee 2. Reactive synovitis medial, lateral and suprapatellar compartments right knee 3. Partial ACL graft tear right knee Procedure(s) Performed: 1. Arthroscopic partial medial and lateral meniscectomy right knee 2. Arthroscopic partial synovectomy medial, lateral and suprapatellar compartments right knee 3. Arthroscopic debridement partial ACL graft tear right knee Anesthesia: MARILINA, local Surgeon: Gonzalez Perla Estimated Blood Loss (ml): 6 Pathology: none sent Condition: stable Disposition: PACU Indications for Procedure: 52-year-old patient seen with progressive right knee pain. After treatment options were discussed, she elected to proceed with arthroscopy. Operative Findings: See description of procedure Description of Procedure: Patient was taken to the operative suite. Patient underwent a general anesthetic by the department of anesthesia. Patient was given preoperative ant ibiotics. The right lower extremity was placed in a well-padded arthroscopic leg reed. The right leg was prepped and draped in the normal sterile orthopedic fashion. A lateral parapatellar and suprapatellar incision was made. Trochars were inserted. Arthroscopy was initiated. Suprapatellar pouch revealed diffuse thick reactive synovitis. The patellofemoral joint appeared to articulate congruently. There was no significant chondromalacia present.. The scope was guided into the medial gutter. No loose bodies or plica were identified. The scope was then guided into the medial compartment. A medial parapatellar incision was made. Trocar inserted followed by probe. There was a radial tear posterior horn medial meniscus. There were mild grade 1 chondromalacia changes of the medial compartment with no tears. There was some thick reactive synovitis anteriorly. I performed a partial medial meniscectomy getting down to stable meniscal tissue. I performed a partial synovectomy decompressing the reactive synovitis. The residual meniscus was probed and was found to be stable. There was good decompression of the synovitis. Scope and probe were then guided into the intercondylar notch. There was partial tearing of the ACL graft. I introduced a motorized shaver and debrided down to stable graft tissue. There was about 50% of the graft remaining which did appear to offer some stability intraoperatively. The PCL was stable. The scope and probe were then guided into lateral compartment. There was a tear involving the posterior horn of the lateral meniscus. There was significant thick reactive synovitis anteriorly. There was grade 1 chondromalacia involving the lateral compartment. I performed a partial lateral meniscectomy getting down to stable meniscal tissue. I performed a partial synovectomy. The shaver was now removed. The residual meniscus was stable. There was good decompression of synovitis. The scope was in guided back into the suprapatellar compartment. I introduced the motorized shaver into the suprapatellar compartment. I debrided some piecemeal fragments of meniscus that I encountered. I performed a partial synovectomy. The shaver was removed. There was good decompression of the synovitis. I took one more look around the entire knee, no residual debris. Instruments were now removed from the joint. The joint was infiltrated with .25% Marcaine. Steri-Strips were applied to the portal sites. Sterile dressings were applied. The patient was placed into a MEKA hose. No tourniquet was utilized. The patient was awakened, transferred to a bed and taken to recovery stable satisfactory condition.
[2023-03-12 12:16] VITALS: TEMP 96.8
[2023-03-12 12:57] VITALS: RESP 16
[2023-03-12] MEDS ORDERED: HYDROcodone/APAP 10-325MG 1 EACH TAB ONE (12:59)
[2023-03-12] MEDS ORDERED: HYDROcodone/APAP 10-325MG 1 EACH TAB PO ONE (13:00)
[2023-03-12 13:12] VITALS: BP 131/82; PULSE 70
== END 2023-03-12 14:28 | disposition home or self-care (01) ==
LOC: OR 09:38
PROVIDERS: ATTEND Orthopaedic Surgery
DX: S83.281A Other tear of lateral meniscus, current injury, right knee, initial encounter (principal); M65.861 Other synovitis and tenosynovitis, right lower leg; M17.11 Unilateral primary osteoarthritis, right knee; K21.9 Gastro-esophageal reflux disease without esophagitis; E28.2 Polycystic ovarian syndrome; I10 Essential (primary) hypertension; Z91.81 History of falling; Z90.710 Acquired absence of both cervix and uterus; Z98.890 Other specified postprocedural states; Z85.828 Personal history of other malignant neoplasm of skin; Z83.49 Family history of other endocrine, nutritional and metabolic diseases; X58.XXXA Exposure to other specified factors, initial encounter
CPT/HCPCS: 29880; J2250; J1100; J0690; J2405; J3010; J1170 ×2; J2704; J2001; J0665

== ENCOUNTER → 2023-03-14 | Outpatient (CLI) | payer BC ==
--- NOTE | 2023-03-14 22:11 | MR ---
EXAMINATION TYPE: MR brain wo/w con DATE OF EXAM: 03/14/2023 COMPARISON: MRA 06/19/2022 HISTORY: 52-year-old female I67.1 Cerebral aneurysm TECHNIQUE: Multiplanar, multisequence images of the brain and brainstem were acquired before and aft er administration of 10 mL IV Gadavist. Diffusion weighted imaging is performed. FINDINGS: No evidence for acute infarction, hemorrhage, mass, mass effect, midline shift, herniation, effacemen t of basal cisterns, or extra-axial fluid collection. The ventricles and sulci are age-appropriate. Major intracranial flow voids are intact. The aneurysm projecting inferiorly involving the right MCA and infundibulum projecting superiorly from the left MCA are not well depicted on the present exam. T2/FLAIR weighted sequences redemonstrate a solitary 6 mm subcortical right white matter focus latera l right frontoparietal junction. Additional 7 mm prominent perivascular space left basal ganglia is u nchanged. No new white matter signal abnormality. Midline structures demonstrate normal morphology. The craniocervical junction is normal. Post contrast images demonstrate no evidence of pathologic enhancement. Dural venous sinuses are pat ent. Slight leftward nasal septal deviation. Trace mucosal thickening ethmoid air cells. Mastoid air cells well pneumatized. IMPRESSION: 1. No acute intracranial abnormality seen. No enhancing lesions. Stable chronic [address] white [address] focus subcortical right frontoparietal white matter, compared back to 2018. 2. The right MCA saccular aneurysm and left MCA infundibulum described on patient's 06/19/2022 MRA ar e not well depicted on this conventional brain MRI scan. MRA follow-up as clinically indicated.
== END | disposition home or self-care (01) ==
LOC: RADMRIMAIN 13:28
PROVIDERS: ATTEND Family Medicine
DX: I67.1 Cerebral aneurysm, nonruptured (principal); R90.82 White matter disease, unspecified
CPT/HCPCS: 70553; A9585

== ENCOUNTER → 2023-03-19 | Outpatient (CLI) | payer BC ==
--- NOTE | 2023-03-20 12:29 | MR ---
EXAMINATION TYPE: MR angio head wo con DATE OF EXAM: 03/19/2023 6:54 AM COMPARISON: NONE HISTORY: Hx of 2 cerebral aneurysms Three-dimensional eldi-ap-acqaay intracranial MRA was performed with multiple intensity projection im ages submitted and source data reviewed at the workstation. The vertebrobasilar system as well as intracranial portions of the internal carotid arteries and thei r major tributaries are patent. Unchanged 3 mm saccular aneurysm arising from the right middle cereb ral artery. Stable 3 mm infundibulum arising from the left middle cerebral artery. IMPRESSION: Stable aneurysms as seen.
== END | disposition home or self-care (01) ==
LOC: RADMRIMAIN 06:24
PROVIDERS: ATTEND Family Medicine
DX: I67.1 Cerebral aneurysm, nonruptured (principal)
CPT/HCPCS: 70544

== ENCOUNTER → 2023-04-23 | Day surgery (SDC) | payer BC ==
--- NOTE | 2023-04-22 20:25 | HP ---
HISTORY AND PHYSICAL DATE OF SURGERY: 04/23/2023. HISTORY OF PRESENT ILLNESS: Marge Giles is a 52-year-old patient seen with progressive left shoulder pain. We discussed options for treatment. She elected to proceed with left shoulder arthroscopy. Consent was obtained. PAST MEDICAL HISTORY: Hyperlipidemia and hypertension. PAST SURGICAL HISTORY: Hysterectomy and right knee arthroscopy x2. DAILY MEDICATIONS: 1. Hydrochlorothiazide. 2. Multivitamin. 3. Spironolactone. ALLERGIES: 1. Gadolinium. 2. IV dye. SOCIAL HISTORY: She denies tobacco use. PHYSICAL EVALUATION OF THE LEFT SHOULDER: Flexion is 70 degrees. Abduction is 50 degrees. External rotation is 30 degrees with pain and weakness. Tenderness along the anterolateral acromion and rotator cuff insertion. Impingement is positive at 70 degrees. Cross-body adduction sign is positive. Drop-arm sign is positive. Distal neurovascular exam is intact. IMAGING STUDIES: Left shoulder radiographs revealed a type 2 acromion, moderate acromioclavicular joint osteoarthritis, and cystic changes of the tuberosity. MRI left shoulder revealed impingement, moderate acromioclavicular joint osteoarthritis, and rotator cuff tendinitis. IMPRESSION: 1. Left shoulder impingement. 2. Left shoulder rotator cuff tendinitis. 3. Left shoulder acromioclavicular joint osteoarthritis. 4. Hypertension. PLAN: Left shoulder arthroscopy with subacromial decompression, possible arthroscopic rotator cuff repair, Nadir procedure, and debridement. MMODL / IJN: [id number] /
[~2023-04-23] MED LIST changes: +DEXAMETHASONE SOD PHOSPHATE 4 MG/ML 1 ML VIAL ONE; +GLYCOPYRROLATE 0.2 MG/ML 2 ML VIAL ONE; +LIDOCAINE 1% INJ 10MG/ML (20 ML MDV) ONE; +MIDAZOLAM 2 MG/2 ML VIAL IV PRN; +MIDAZOLAM 2 MG/2 ML VIAL IVP ONE; +MIDAZOLAM 2 MG/2 ML VIAL ONE; +NEOSTIGMINE 1 MG/ML 10 ML VIAL ONE; +ONDANSETRON 4 MG/2 ML VIAL ONE; +PROPOFOL 10 MG/ML 20 ML VIAL IV ONE; +ROCURONIUM 10 MG/ML (5 ML VIAL) IV ONE; +ROPIVACAINE 5 MG/ML 30 ML VIAL ONE; +SUCCINYLCHOLINE CHLORIDE 200 MG/10 ML VIAL IV ONE; +diphenhydrAMINE 50 MG/ML 1 ML VIAL ONE; -droPERidol 5 MG/2 ML VIAL IVP ONE; +fentaNYL (PF) 50 MCG/ML 2 ML AMP ONE
[2023-04-23 08:17] LABS: Glucose,Whole Blood 113 mg/dL (70-110)
--- NOTE | 2023-04-23 08:45 | P.ANPRN ---
Procedure Note - Anesthesia - Nerve Block Performed Left Interscalene Single Time Out Performed: Yes ([id number]) Date of Procedure: 04/23/23 Procedure Start Time: :30 Procedure Stop Time: :35 Location of Patient: OR Indication: Acute Post-Operative Pain, Dx/Pain Location, Requested by Surgeon Sedation Type: Sedate with meaningful contact maintained Preparation: Sterile Prep, Sterile Dressing Position: Sitting Catheter: None Needle Types: Pajunk Needle Gauge: Other (see comment) (22) Ultrasound used to visualize needle placement: Yes Ultrasound used to observe medication spread: Yes Injectate: 0.5% Ropivacaine (see comment for volume) (20 mL of 0.5% ropivacaine mixed with 4 mg of dexamethasone.) Blood Aspirated: No Pain Paresthesia on Injection Noted: No Resistance on Injection: Normal Image Stored and Saved: Yes Events: Uneventful and Well Tolerated
--- NOTE | 2023-04-23 11:00 | P.OP ---
Date of Procedure: 04/23/23 Preoperative Diagnosis: Left shoulder impingement Postoperative Diagnosis: 1. Left shoulder impingement 2. Left shoulder rotator cuff tear 3. Left shoulder bicipital tendinitis 4. Left shoulder acromioclavicular joint osteoarthritis 5. Left shoulder superficial labral tear Procedure(s) Performed: 1. Left shoulder arthroscopic rotator cuff repair 2. Left shoulder arthroscopic biceps tenodesis 3. Left shoulder arthroscopic subacromial decompression 4. Left shoulder arthroscopic Nadir procedure 5. Left shoulder arthroscopic debridement labral tear Implants: 2Arthrex 4.75 swivel lock anchors Anesthesia: MARCELL, nayely Surgeon: Gonzalez Perla Pilot Captain #1: [place] Estimated Blood Loss (ml): 12 Pathology: none sent Condition: stable Disposition: PACU Indications for Procedure: 52-year-old patient who was seen with progressive left shoulder pain. After having treatment options discussed, she elected to proceed with arthroscopy. Operative Findings: See description of procedure Description of Procedure: Patient underwent an interscalene block by department of anesthesia. The patient was then taken to the operative suite. The patient underwent a general anesthetic by the department of anesthesia. The patient was placed into a lateral position and secured. There was appropriate padding of the bony prominence. Left shoulder was then prepped and draped in normal sterile orthopedic fashion. We placed the extremity in 10 pounds of longitudinal traction. A posterior incision was now made for a posterior working portal site. The trocar and cannula were inserted into the glenohumeral joint. Arthroscopy was initiated. Spinal needle was now inserted anteriorly, to ascertain the anterior working portal site. An incision was now made in that area, a trocar was inserted followed by a probe. There was hyperemia involving long head biceps tendon consistent with tendinitis. There was superficial fraying of the superior and anterior labrum. There were no significant chondromalacia changes present. I debrided out the superficial labral tears getting down to stable labral tissue. I decided to proceed with an arthroscopic biceps tenodesis. I now introduced a cannula through the anterior portal site. I now passed a loop and tag stitch through the biceps tendon. I now released the biceps tendon off of the superior anchor. With the assistance of Omari HENDRICKS now punched the hole at the interval for insertion of an anchor. The suture was now passed through the eyelet of an Arthrex 4.75 swivel lock anchor. I placed her eyelet into the pre-punch hole. I held it in position while Omari HENDRICKS tensioned the suture and deployed the anchor with good fixation noted. The residual suture limb was clipped. We had a stable appearing biceps tenodesis. Instruments were now removed from the glenohumeral joint. Utilizing the posterior working portal site, the trocar and cannula were inserted into the subacromial space. Arthroscopy initiated. I made an incision 2 fingerbreadths lateral to the acromion. I introduced my trocar followed by my ArthroCare ablator. I now began ablating thick subacromial bursal tissue, which exposed the undersurface of the anterior acromion. There was diminished subacromial space. There was a very prominent anterior acromion. A motorized bur was introduced and a subacromial decompression was performed. I also excised some osteophytes off the inferior aspect of the distal clavicle. The AC joint was visualized and noted to be fairly arthritic. The motorized bur was introduced in the anterior portal site and a Nadir procedure was performed without difficulty, decompressing the AC joint nicely. I turned my attention to the rotator cuff. There was a 1 cm rotator cuff tendon tear. I debrided the margins getting down to stable tendon tissue. The defect now measured almost 1.5 cm and was freely mobile over the footprint. I abraded the footprint with a motorized bur. With the assistance of Omari HENDRICKS past 3 everted mattress sutures through good bites of rotator cuff tendon. All 6 limbs of suture were now passed through the eyelets of an Arthrex 4.75 swivel lock anchor. I placed the eyelets into our pre-punch hole. I held it in position while Omari HENDRICKS tensioned all 6 limbs of suture and deployed anchor with good fixation noted. All residual suture limbs were now clipped. We had good compression of the tendon along the entire footprint. Instruments now removed from the portal sites. All portal sites were approximated with nylon suture. Sterile dressings were applied followed by a shoulder sling. [place] HENDRICKS assisted in this complex case. The patient was awakened, transferred to a bed, and taken to recovery in stable condition.
[2023-04-23 11:24] VITALS: TEMP 97.8
[2023-04-23 11:44] VITALS: RESP 16
[2023-04-23 12:05] VITALS: BP 127/79; PULSE 68
== END | disposition home or self-care (01) ==
LOC: OR 07:39
PROVIDERS: ATTEND Orthopaedic Surgery
DX: M25.812 Other specified joint disorders, left shoulder (principal); M19.012 Primary osteoarthritis, left shoulder; M75.22 Bicipital tendinitis, left shoulder; M75.102 Unspecified rotator cuff tear or rupture of left shoulder, not specified as traumatic; M75.42 Impingement syndrome of left shoulder; E78.5 Hyperlipidemia, unspecified; I10 Essential (primary) hypertension; K52.9 Noninfective gastroenteritis and colitis, unspecified; Z98.890 Other specified postprocedural states; Z79.899 Other long term (current) drug therapy; Z91.040 Latex allergy status; Z88.5 Allergy status to narcotic agent; Z88.8 Allergy status to other drugs, medicaments and biological substances; Z88.2 Allergy status to sulfonamides; Z88.6 Allergy status to analgesic agent
CPT/HCPCS: 29826; 29824; 29827; 29828; 64415; C1713 ×3; J2250; J0330; J1200; J1100; J2710; J0690; J2405; J2001; J3010; J2795; J2704

== ENCOUNTER 2023-10-31 09:16 | Day surgery (SDC) | payer BC ==
[~2023-10-31 09:16] MED LIST changes: -DEXAMETHASONE SOD PHOSPHATE 4 MG/ML 1 ML VIAL IV ONE; -DEXAMETHASONE SOD PHOSPHATE 4 MG/ML 1 ML VIAL ONE; -GLYCOPYRROLATE 0.2 MG/ML 2 ML VIAL ONE; -HYDROmorphone 0.5 MG/0.5 ML SYRINGE IVP PRN; -LACTATED RINGERS 1,000 ML IV SCH; -LIDOCAINE 1% INJ 10MG/ML (20 ML MDV) ONE; -MIDAZOLAM 2 MG/2 ML VIAL IV PRN; -MIDAZOLAM 2 MG/2 ML VIAL IVP ONE; -MIDAZOLAM 2 MG/2 ML VIAL ONE; -NEOSTIGMINE 1 MG/ML 10 ML VIAL ONE; -ONDANSETRON 4 MG/2 ML VIAL IVP ONE; -ONDANSETRON 4 MG/2 ML VIAL ONE; -PROPOFOL 10 MG/ML 20 ML VIAL IV ONE; -ROCURONIUM 10 MG/ML (5 ML VIAL) IV ONE; -ROPIVACAINE 5 MG/ML 30 ML VIAL ONE; -SUCCINYLCHOLINE CHLORIDE 200 MG/10 ML VIAL IV ONE; -diphenhydrAMINE 50 MG/ML 1 ML VIAL ONE; -fentaNYL (PF) 50 MCG/ML 2 ML AMP ONE
[2023-10-31] MEDS: LACTATED RINGERS 1,000 ML IV SCH (10:15)
[2023-10-31 10:18] LABS: Glucose,Whole Blood 102 mg/dL (70-110)
[2023-10-31] MEDS: ONDANSETRON 4 MG/2 ML VIAL IVP ONE (10:21)
[2023-10-31] MEDS: FAMOTIDINE 20 MG/2 ML VIAL IVP ONE (10:22)
[2023-10-31 10:25] VITALS: RESP 16; TEMP 98.4
[2023-10-31] MEDS ORDERED: PROPOFOL 10 MG/ML 20 ML VIAL IV ONE (11:08)
--- NOTE | 2023-10-31 11:19 | P.PCN ---
Date of Procedure: 10/31/23 Procedure(s) Performed: BRIEF HISTORY: Patient is a 52-year-old, pleasant, white female description of endoscopies about evaluation of intermittent dysphagia to solids for the last 6 months duration. Last EGD with dilation was in July 2022.. PROCEDURE PERFORMED: Esophagogastroduodenoscopy with biopsy and dilation. PREOPERATIVE DIAGNOSIS: GERD and intermittent dysphagia to solids. IV sedation per anesthesia. PROCEDURE: After informed consent was obtained, the patient was brought into the endoscopy unit. IV sedation was administered by Anesthesia under continuous monitoring. Initially the Olympus GIF-140 video endoscope was inserted into the mouth. Esophagus intubated without any difficulty. It was gradually advanced into the stomach and duodenum and carefully examined. The bulb and the second part of the duodenum appeared normal. The scope at this time was withdrawn to the stomach, adequately insufflated with air, and upon careful examination, mucosa of the antrum, body, cardia and the fundus appeared normal. The scope was then withdrawn into the esophagus. Mild hiatal hernia noted. The GE junction was located at 39 cm from the incisors. It was a widely patent distal esophageal Schatzki's ring identified that was dilated using 18 to 20 mm TTS balloon for 30 seconds. The esophagus appeared normal. There were no erosions or ulcerations seen, biopsies were done from the distal esophagus and the patient tolerated the procedure well. IMPRESSION: 1. Widely patent distal esophageal Schatzki's ring status post balloon dilation using 18 to 20 mm TTS balloon as described above. 2. Small hiatal hernia. RECOMMENDATIONS: The findings of this examination were discussed with the patient as well as her family. She was advised to be on clear liquids for 2 hours. Continue with current medications and follow antireflux measures. Follow-up in the office in 6 months.. 52
[2023-10-31 11:52] VITALS: BP 138/75; PULSE 67
== END 2023-10-31 11:56 | disposition home or self-care (01) ==
LOC: ORWHC2ENDO 09:16
PROVIDERS: ATTEND Internal Medicine Gastroenterology
DX: K44.9 Diaphragmatic hernia without obstruction or gangrene (principal); K22.2 Esophageal obstruction; K21.9 Gastro-esophageal reflux disease without esophagitis; E78.5 Hyperlipidemia, unspecified; Z87.19 Personal history of other diseases of the digestive system; Z87.891 Personal history of nicotine dependence; Z88.6 Allergy status to analgesic agent; Z91.040 Latex allergy status; Z91.041 Radiographic dye allergy status; Z90.710 Acquired absence of both cervix and uterus
CPT/HCPCS: 88305; 43239; 43249; J2405; J3490; J2704; C1726

== ENCOUNTER → 2023-11-06 | Outpatient (CLI) | payer BC ==
--- NOTE | 2023-11-07 11:38 | CA ---
Transthoracic Echo Report Name: Marge Giles Age: 52 Gender: F : 1970 Exam Date: 11/06/2023 11:12 Exam Location: [facility] Ht (in): 63 Wt (lb): 202 Ordering Physician: Alfredo Vargas MD Attending/Referring Phys: Hanna Brenner NPC Child Care Coordinator Francisca Boland RDCS Procedure CPT: Indications: R94.31 ABN EKG R06.02 SOB R07.9 CHEST PAIN Cardiac Hx: Technical Quality: Fair Contrast 1: Total Dose (mL): Contrast 2: Total Dose (mL): MEASUREMENTS (Male / Female) Normal Values 2D ECHO LV Diastolic Diameter PLAX 5.1 cm 4.2 - 5.9 / 3.9 - 5.3 cm LV Systolic Diameter PLAX 2.7 cm IVS Diastolic Thickness 0.9 cm 0.6 - 1.0 / 0.6 - 0.9 cm LVPW Diastolic Thickness 1.0 cm 0.6 - 1.0 / 0.6 - 0.9 cm LV Relative Wall Thickness 0.4 RV Internal Dim ED PLAX 2.9 cm LA Systolic Diameter LX 4.5 cm 3.0 - 4.0 / 2.7 - 3.8 cm LV Diastolic Volume MOD BP 51.9 cm??? 67 - 155 / 56 - 104 cm??? LV Systolic Volume MOD BP 25.9 cm??? 22 - 58 / 19 - 49 cm??? LV Ejection Fraction MOD BP 50.2 % >= 55 % LV Diastolic Volume MOD 4C 62.9 cm??? LV Systolic Volume MOD 4C 27.3 cm??? LV Ejection Fraction MOD 4C 56.6 % LV Diastolic Length 4C 7.7 cm LV Systolic Length 4C 6.5 cm LV Diastolic Volume MOD 2C 42.0 cm??? LV Systolic Volume MOD 2C 20.1 cm??? LV Ejection Fraction MOD 2C 52.2 % LV Diastolic Length 2C 7.5 cm LV Systolic Length 2C 7.0 cm M-MODE Aortic Root Diameter MM 3.0 cm LA Systolic Diameter MM 3.9 cm LA Ao Ratio MM 1.3 AV Cusp Separation MM 2.1 cm DOPPLER AV Peak Velocity 114.4 cm/s AV Peak Gradient 5.2 mmHg Mitral E Point Velocity 70.2 cm/s Mitral A Point Velocity 61.0 cm/s Mitral E to A Ratio 1.2 MV Deceleration Time 221.8 ms MV E' Velocity 5.2 cm/s Mitral E to MV E' Ratio 13.5 TR Peak Velocity 195.8 cm/s TR Peak Gradient 15.3 mmHg Right Ventricular Systolic Press 20.4 mmHg PV Peak Velocity 83.6 cm/s PV Peak Gradient 2.8 mmHg FINDINGS Left Ventricle Left ventricular ejection fraction is estimated at 55-60 %.Normal left ventricular systolic function with no obvious regional wall motion abnormalities. Left ventricular cavity size normal. Left ventricular wall thickness normal. Right Ventricle Normal right ventricular size and function. Right ventricular systolic pressure within normal limits. Right Atrium Normal right atrial size. Left Atrium Normal left atrial size. Mitral Valve Structurally normal mitral valve. Trace mitral regurgitation. Aortic Valve Trileaflet aortic valve. No aortic stenosis. No aortic regurgitation. Tricuspid Valve Structurally normal tricuspid valve. Trace to mild tricuspid regurgitation. Pulmonic Valve Structurally normal pulmonic valve. Trace pulmonic regurgitation. Pericardium No pericardial or pleural effusion. Prominent epicardial fat. Aorta Aortic root and proximal ascending aorta not well visualized. CONCLUSIONS Normal LV systolic function Previewed by: Dr. Shivam Gutierrez MD (Electronically Signed) Final Date: 07 Nov 2023 11:37
--- NOTE | 2023-11-07 19:24 | CA ---
Exercise Stress Test Report Name: Marge Giles Exam Date: 11/06/2023 11:41 Exam Location: [facility] Ht (in): 63 Wt (lb): 202 BSA: 1.94 Ordering Phys: Alfredo Vargas MD Referring Phys: Hanna Brenner Technologist: Narda Ortiz RDCS Age: 52 Gender: F : 1970 Procedure CPT: Indications: R94.31 ABN EKG R06.02 SOB R07.9 CHEST PAIN ICD-10 Codes: Patient History: Medications: SEE LIST Meds past 24 hrs: Pretest Chest Pain: STRESS TEST Jayro Protocol Exercise Duration (min:sec): 05:[address] Depressions (mm): Angina Score: Sharif Score: Resting HR (bpm): 98 Peak HR (bpm): 142 Resting BP (mmHg): 136 / 99 Peak BP (mmHg): 225 / 108 MPHR: 166 Target HR: 141 % MPHR: 86 METS: 7.1 Total Dose: Peak Dose: Atropine: Double Product: 86341 BP Response: Stress Termination: Reached target heart rate Stress Symptoms: SHORTNESS OF BREATH, CHEST PAIN, PALPITATION Stress Summary: ECG ANALYSIS Resting ECG: Stress ECG: CONCLUSIONS Good exercise tolerance Normal electrocardiogram stress testing Dr. Shivam Gutierrez MD (Electronically Signed) Final Date: 07 Nov 2023 19:23
== END | disposition home or self-care (01) ==
LOC: RADNMMAIN 10:27
PROVIDERS: ATTEND Family Medicine
DX: R94.31 Abnormal electrocardiogram [ECG] [EKG] (principal); R06.02 Shortness of breath; R07.9 Chest pain, unspecified
CPT/HCPCS: 93017; 93306

== ENCOUNTER → 2024-03-10 | Outpatient (CLI) | payer BC ==
--- NOTE | 2024-03-10 16:56 | MR ---
EXAMINATION TYPE: MR angio head wo con DATE OF EXAM: 03/10/2024 COMPARISON: 03/19/2023 HISTORY: cerebral aneurysm, nonruptured. follow up CONTRAST: None TECHNIQUE: Multiplanar multiecho imaging on a 3.0 Jessica magnet is performed through the [facility] [place] [facility]. 3-D zjyj-sj-erkjvy imaging is performed. Source images are reviewed on the computer in the axi al plane. Reconstructed images rotating on the computer are reviewed. FINDINGS: The internal carotid arteries bifurcate normally into A1 and M1 segments. The A2 segments are normal. A small saccular aneurysm measuring 0.3 cm right middle cerebral artery bifurcation is stable from co mparison. 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 This measures 0. 3 cm in length and is slightly normal. Anterior communicating artery is patent. Posterior communicating arteries not clearly identified Vertebrobasilar arteries within the field-of- view are normal. Posterior cerebral vasculature is normal. No obstructions are identified. No sign ificant flow-limiting stenosis is evident. IMPRESSION: 1. 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 2. 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
== END | disposition home or self-care (01) ==
LOC: RADMRIMAIN 15:48
PROVIDERS: ATTEND Family Medicine
DX: I67.1 Cerebral aneurysm, nonruptured (principal)
CPT/HCPCS: 70544

== ENCOUNTER → 2024-04-01 | Outpatient (CLI) | payer BC ==
--- NOTE | 2024-04-02 12:33 | MM ---
Reason for Exam: Screening (asymptomatic). Last mammogram was performed 8 year(s) and 3 month(s) ago. Patient History: Menarche at age 7. First Full-Term at age 23. Hysterectomy at age 32. Postmenopausal. Other cancer. Hormonal Contraceptives for 10 years from age 16 until age 26. 02/09/2016, Benign Core Biopsy on the left side. Paternal grandmother had breast cancer, age 50. Maternal cousin had breast cancer, age 45. Risk Values: Lian 5 year model risk: 1.7%. NCI Lifetime model risk: 11.6%. Prior Study Comparison: 03/16/2014 Bilateral Screening Mammogram, [facility]. 01/26/2016 Bilateral Screening Mammogram, [facility]. 02/09/2016 Left Diagnostic Mammogram, [facility]. Tissue Density: There are scattered areas of fibroglandular density. Findings: Analyzed By CAD. Right breast biopsy clip. Right breast: There is no suspicious group of microcalcifications or new suspicious mass. Left breast: There is no suspicious group of microcalcifications or new suspicious mass. Overall Assessment: Benign, BI-RAD 2 Management: Screening Mammogram of both breasts in [address] [facility] will attempt to contact patient to return for supplemental views and ultrasound if indicated. Patient should continue monthly self-breast exams. A clinical breast exam by your physician is recommended on an annual basis. This exam should not preclude additional follow-up of suspicious palpable abnormalities. Note on Lian scores and lifetime risk: 1. A Lian score greater than 3% is considered moderate risk. If this is the case, consider specialist referral to assess eligibility for a risk reducing agent. 2. If overall lifetime risk for the development of breast cancer is 20% or higher, the patient may qualify for future screening with alternating mammogram and breast MRI. [facility], , 04/02/2024 12:29 PM. Electronically signed and approved by: Geovanni Choudhury DO
== END | disposition home or self-care (01) ==
LOC: RADMAMWWP 10:31
PROVIDERS: ATTEND Family Medicine
DX: Z12.31 Encounter for screening mammogram for malignant neoplasm of breast
CPT/HCPCS: 77063; 77067